=== PATIENT | male | born 1970 | race Caucasian/White ===

== ENCOUNTER 2017-11-12 11:16 | Inpatient (IN) | payer OTHER, SELFPAY ==
[2017-11-12 11:53] LABS: #Eosinphils 0.2 thou/uL (0.0-0.7); #Lymphocytes 2.1 thou/uL (1.20-3.40); #Monocytes 0.6 thou/uL (0.11-0.59); #Neutrophils 4.4 thou/uL (1.40-6.50); %Basophils 0.4 % (0.0-1.0); %Eosinophils 2.1 % (0.0-10.0); %Lymphocytes 28.3 % (21.0-51.0); %Monocytes 8.1 % (0.0-10.0); %Neutrophils 61.2 % (42.0-75.0); Mean Corpuscular Hemoglobin 27.9 pg (27.0-31.0); Mean Corpuscular Volume 87.2 fl (80.0-94.0); Mean Platelet Volume 6.4 fL (7.4-10.4); Platelet Count 262 thou/uL (130-400); RBC Distribution Width 12.6 % (11.5-14.5); Red Blood Cell (RBC) Count 5.37 mill/uL (4.70-6.10); White Blood Cell (WBC) Count 7.2 thou/uL (4.8-10.8)
[2017-11-12 12:26] LABS: ALT (SGPT) 30 U/L (8-55); AST (SGOT) 20 U/L (5-34); Albumin 3.9 g/dL (3.5-5.0); Alkaline Phosphatase 120 U/L (40-150); Anion Gap 10 mmol/L (10-20); BUN (Urea Nitrogen) 19 mg/dL (8.9-20.6); Bilirubin, Total 0.4 mg/dL (0.2-1.2); Calc. Creatinine Clearance 0 mL/min (70-130); Calcium 9.9 mg/dL (7.8-10.44); Carbon Dioxide 25 mmol/L (22-29); Chloride 95 mmol/L (98-107); Estimated GFR-MDRD 38; Globulin 3.9 g/dL (2.4-3.5); Potassium 4.5 mmol/L (3.5-5.1); Protein, Total 7.8 g/dL (6.0-8.3); Sodium 125 mmol/L (136-145)
[2017-11-12 12:34] LABS: Glucose 658 mg/dL (70-105)
[2017-11-12 12:40] LABS: Phosphorus 2.4 mg/dL (2.3-4.7)
[2017-11-12 12:49] LABS: Troponin I 0.012 ng/mL (< 0.028)
--- NOTE | 2017-11-12 12:50 | RAD ---
RIGHT FOOT THREE VIEWS: HISTORY: A 47-year-old male with a history of injury to the right foot. History of diabetes mellitus. FINDINGS: There is some soft tissue swelling laterally at the fifth toe, with what appears to be a focal soft t issue ulcer. There is some minimal osteopenia of the distal fifth metatarsal. The possibility of so me coexistent early osteomyelitis cannot be excluded. IMPRESSION: Soft tissue swelling laterally with an ulcer at the level of the fifth toe, distal metatarsal, with s ome heterogeneous, bony demineralization of the fifth metatarsal head. Consider follow-up MRI for fu rther assessment to rule out the possibility of osteomyelitis. POS: SANDRA
[2017-11-12 12:54] LABS: CKMB 10.3 ng/mL (0-6.6)
[2017-11-12] MEDS ORDERED: Piperacillin/Tazobactam 4.5 GM in Sodium Chloride 0.9% 100 ML IVPB SCH (14:00)
[2017-11-12 14:41] LABS: Base Excess-Venous -1.1 mmol/L (-30.0-30.0); Bicarbonate (HCO3v) 24.1 mmol/L (1.0-85.0); CO2 Tension (PvCO2) 43.3 mmHg (41.0-51.0); pH (Venous) 7.362 (7.35-7.45); vO2 Saturation-calc 64.8 % (0.0-100.0)
[2017-11-12 14:42] LABS: Calcium, Ionized 1.11 mmol/L (1.12-1.32); Potassium 4.5 mmol/L (3.4-4.7); T. Carbon Dioxide 25.9 mmol/L (1.0-85.0)
[2017-11-12] MEDS ORDERED: hydrALAZINE 20 MG/ML VIAL ONE ×2 (15:34→16:21)
[2017-11-12] MEDS ORDERED: Labetalol HCl 100 MG/20 ML VIAL ONE (16:58)
[2017-11-12 17:56] VITALS: BMI 34.9
[2017-11-12] MEDS ORDERED: HYDROcodone/Acetaminophen 5/325 mg Tablet PO PRN (18:05)
[2017-11-12] MEDS ORDERED: Ondansetron HCl/PF 4 MG/2 ML Vial IVP PRN (18:05)
[2017-11-12] MEDS ORDERED: Bisacodyl 5 MG TAB PO PRN (18:05)
[2017-11-12] MEDS ORDERED: Dextrose 50% Abboject 50 ML SYRINGE SLOW IVP PRN (18:05)
[2017-11-12] MEDS ORDERED: Dextrose 5% in Water 1,000 ML IV PRN (18:05)
[2017-11-12] MEDS ORDERED: Acetaminophen 325 MG TAB PO PRN (18:05)
--- NOTE | 2017-11-12 18:34 | HP ---
DATE OF ADMISSION: 11/12/2017 CHIEF COMPLAINT: Right foot ulcer. HISTORY OF PRESENT ILLNESS: This is a 47-year-old young white male with a known history of type 2 di abetes mellitus poorly controlled as he is stop taking medications for the past 3 years. The patient has been diagnosed with diabetes 6 years ago and was started on metformin and then as he lost his bubba b, he stopped taking his medications. Three months ago, his mother noted spontaneously there was a s mall blister on his on his right foot, and she started monitoring it closely and one day it did burst after 2 weeks with a pus all over, so she tried to clean it with a gauze and applied Triple Antibiot ic ointment and she has been closely monitoring and now it is the size of 3 cm with 0.5 cm of depth w ith the necrotic tissue and was emanating a very foul smelling discharge. The patient was brought to the ER for further evaluation. The patient was noted to have blood sugars of 600s and low sodium le vels and low potassium levels. He was initially given insulin in the emergency room and his blood multani gars did come down to 300, and the x-ray of his right foot was done, which showed no evidence of poss ible osteomyelitis. The patient denied having any chest pain, no nausea, no vomiting, no diarrhea, n o constipation. There was no pain on the foot and he did not complain of any pain. PAST MEDICAL HISTORY: Type 2 diabetes mellitus. PAST SURGICAL HISTORY: None. SOCIAL HISTORY: The patient is a not a known smoker. No history of alcohol, no history of illicit d rug use. FAMILY HISTORY: The patient has significant family history of coronary artery disease. His father d ied at the age of 46 with massive heart attack. ALLERGIES: No known drug allergies. HOME MEDICATIONS: None. REVIEW OF SYSTEMS: All 12 systems are reviewed with the patient thoroughly and found to be negative at this time except the ones described in the HPI The following complete review of systems was negative, unless otherwise mentioned in the HPI or below: Constitutional: Weight loss or gain, sense of well-being, ability to conduct usual activities, exerc ise tolerance. Skin/Breast: Rash, itching, changes in hair growth or loss, nail changes, breast lumps, tenderness, swelling, nipple discharge. Eyes: Vision, double vision, tearing, blind spots, pain. ENT/Mouth: Headaches (location, time of onset, duration, precipitating factors), vertigo, lightheade dness, injury. Vision, double vision, tearing, blind spots, pain, nose bleeding, colds, obstruction, discharge, dental difficulties, gingival bleeding, dentures, neck stiffness, pain, tenderness, masses in thyroid or other areas Cardiovascular: Precordial pain, substernal distress, palpitations, syncope, dyspnea on exertion, or thopnea, nocturnal paroxysmal dyspnea, edema, cyanosis, hypertension, heart murmurs, varicosities, ph lebitis, claudication. Respiratory: Pain, shortness of breath, wheezing, stridor, cough, hemoptysis, fever or night sweats Gastrointestinal: Poor appetite, dysphagia, indigestion, abdominal pain, heartburn, eructation, naus ea, vomiting, hematemesis, jaundice, constipation, or diarrhea, abnormal stools (bogdan-colored, tarry, bloody, greasy, foul smelling), flatulence, hemorrhoids, recent changes in bowel habits. Genitourinary: Urgency, frequency, dysuria, nocturia, hematuria, polyuria, oliguria, unusual (or kathleen nge in) color of urine, stones, hesitancy, change in size of stream, dribbling, acute retention or in continence, libido, potency. Musculoskeletal: Pain, swelling, redness or heat of muscles or joints, limitation, of motion, muscular weakness, atrophy, cramps. Neurologic/Psychiatric: Convulsions, paralyses, tremor, incoordination, parasthesias, difficulties w ith memory of speech, sensory or motor disturbances, or muscular coordination (ataxia, tremor), emoti onal problems, anxiety, depression, previous psychiatric care, unusual perceptions, hallucinations. Allergy/Immunologic: Skin rash, anemia, bleeding tendency, polydipsia, polyuria, intolerance to heat or cold. PHYSICAL EXAMINATION: VITAL SIGNS: Blood pressures are 130/80. Heart rate is 88, respiratory rate is 18. Saturation 98% . GENERAL: The patient is moderately built and moderately nourished. He does not appear to be in acut e distress at this time, is alert, oriented x3. HEENT: Atraumatic, normocephalic. PERRLA. Extraocular muscles are intact. Oral mucosa pink and mo ist. CARDIOVASCULAR: S1, S2 normal. No murmurs, rubs or gallops. LUNGS: Bilateral air entry was equal. No wheezing, no crackles. ABDOMEN: Soft, nontender, no guarding, no rebound tenderness. Bowel sounds normal. MUSCULOSKELETAL: No calf tenderness. No pedal edema. EXTREMITIES: No joint tenderness, no joint swelling. Patient's right foot showing an evidence of a 2 x 3 cm ulcer with 1 cm deep with necrotic tissue and has a foul smelling discharge. SKIN: As described above. NECK: No thyromegaly. No lymphadenopathy was noted. PSYCHIATRIC: No signs of suicidal ideation. No signs of perlita was noted. LABORATORY DATA: WBC 7.2, hemoglobin 15.0, hematocrit 46.8, and platelets are 262. Sodium is 133, potassium is 4.5, chloride is 97, blood sugar is 311. Creatinine is 1.92. BUN is 19. ASSESSMENT: 1. Acute right foot infection, possible osteomyelitis. 2. Acute hyperglycemia with type 2 diabetes mellitus. 3. Acute kidney injury. 4. Acute hyponatremia. PLAN: 1. Plan is to start the patient on IV antibiotics at this time with vancomycin and Zosyn and blood c ultures have been collected in the ER. We will consult General Surgery and Wound Care at this time t o evaluate the wound if it needs any further surgical debridement. We will get a MRI of the right fo ot to look for any evidence of osteomyelitis. 2. Patient has poorly controlled type 2 diabetes mellitus as he is not on any medications. His bloo d sugars are did respond to insulin. We will continue to monitor with sliding scale insulin. We carlos l start the patient on 30 units of Levemir at this time and to plan to keep the blood sugars between 140-180. 3. Patient has evidence of hyponatremia, likely related to hyponatremia secondary to hyperglycemia. We will closely monitor and continue the patient on IV normal saline at 100 mL an hour. 4. DVT prophylaxis is Lovenox 40 mg subcu daily. I spent 70 minutes of this patient
[2017-11-12] MEDS: Sodium Chloride 0.9% 1,000 ML IV SCH (18:44)
[2017-11-12] MEDS ORDERED: Insulin Detemir 100 UNITS/ML 30 UNITS in Pre-Filled Syringe 1 EACH SC SCH (21:00)
[2017-11-12] MEDS: Famotidine/PF 20 mg/2ml Vial SLOW IVP SCH (21:51)
[2017-11-12] MEDS: Docusate 100 MG CAP PO SCH (21:59)
[2017-11-12] MEDS: HumaLOG 300 UNITS/3 ML VIAL SC PRN (22:10)
[2017-11-12] MEDS: Piperacillin/Tazobactam 4.5 GM in Sodium Chloride 0.9% 100 ML IVPB SCH (22:13)
[2017-11-13] MEDS ORDERED: Vancomycin HCl 1 GM in Premix Bag 1 BAG IVPB SCH (03:00)
[2017-11-13] MEDS: Sodium Chloride 0.9% 1,000 ML IV SCH (03:40)
[2017-11-13 05:26] LABS: #Eosinphils 0.2 thou/uL (0.0-0.7); #Lymphocytes 1.4 thou/uL (1.20-3.40); #Monocytes 0.5 thou/uL (0.11-0.59); #Neutrophils 5.9 thou/uL (1.40-6.50); %Basophils 0.3 % (0.0-1.0); %Eosinophils 2.8 % (0.0-10.0); %Lymphocytes 17.6 % (21.0-51.0); %Monocytes 6.5 % (0.0-10.0); %Neutrophils 72.9 % (42.0-75.0); Hemoglobin 13.6 g/dL (14.0-18.0); Mean Corpuscular HGB CONC 32.4 g/dL (32.0-36.0); Mean Corpuscular Volume 86.3 fl (80.0-94.0); Mean Platelet Volume 6.1 fL (7.4-10.4); Platelet Count 237 thou/uL (130-400); RBC Distribution Width 12.4 % (11.5-14.5); Red Blood Cell (RBC) Count 4.84 mill/uL (4.70-6.10); White Blood Cell (WBC) Count 8.1 thou/uL (4.8-10.8)
[2017-11-13 05:32] LABS: Anion Gap 10 mmol/L (10-20); BUN (Urea Nitrogen) 16 mg/dL (8.9-20.6); Calc. Creatinine Clearance 125 mL/min (70-130); Calcium 8.5 mg/dL (7.8-10.44); Carbon Dioxide 25 mmol/L (22-29); Chloride 102 mmol/L (98-107); Estimated GFR-MDRD 58; Glucose 259 mg/dL (70-105); Potassium 3.9 mmol/L (3.5-5.1); Sodium 133 mmol/L (136-145)
[2017-11-13] MEDS: Piperacillin/Tazobactam 4.5 GM in Sodium Chloride 0.9% 100 ML IVPB SCH (05:33)
[2017-11-13] MEDS: HumaLOG 300 UNITS/3 ML VIAL SC PRN ×3 (05:43→22:00)
--- NOTE | 2017-11-13 08:09 | HP ---
HISTORY OF PRESENT ILLNESS: Chidi Meza is a 47-year-old male with a neuropathic ulcer, right fo ot beneath the metatarsophalangeal joint of the small toe. He has been a diabetic in the past, but s judi he quit taking his medications. He has gained weight recently since he has lost his job. He p resents to the emergency room and x-rays of the right foot demonstrating soft tissue swelling. MRI s can has been ordered, but I will cancel it as evaluation of ulceration reveals it extends into the me tatarsophalangeal joint. At this point, I would recommend amputation of the right fifth toe and meta tarsal, wound left open by secondary intention and wound VAC application. We will perform that today , he will be discharged home tomorrow or Friday with oral antibiotics whenever the [facility] wound VAC is available. The patient lives [place], [place]. He is and he can come to outpatient [facility] 2-3 times a week [facility] for VAC changes. I will follow him up as an outpatient and he can be discharged home on oral antibiotics in the next 24-48 hours. ALLERGIES: None. TOBACCO: None. ALCOHOL: None. MEDICATIONS: None prior to this hospitalization. REVIEW OF SYSTEMS: Ten point noncontributory. SOCIAL HISTORY: The patient is . He lives in [place], [place]. 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 PHYSICAL EXAMINATION: VITAL SIGNS: Height 6 foot 3, weight 275 pounds, 98 degrees, 87, 134/76. LUNGS: Clear to auscultation. CARDIAC: Regular rate and rhythm without murmur or gallop. ABDOMEN: Soft, obese, nontender. EXTREMITIES: Palpable femoral, popliteal, dorsalis pedis, posterior tibial pulses. The patient has hair on his toes and feet. Right foot reveals a neuropathic diabetic ulcer approximately 2 cm in edgard meter beneath the metatarsophalangeal joint of the right 5th toe. This extends into the metatarsopha langeal joint with exposed connective tissue and bone. LABORATORY: White count 8, hemoglobin 13, sodium 133, potassium 3.9, creatinine 1.33 down from 1.92 on admission, glucose 300 to 253. ASSESSMENT AND PLAN: 1. Diabetic neuropathic ulcer, right foot, with extension to the bone and metatarsophalangeal joint under the right fifth toe. Plan as outlined above. He understands the wound will be left open to he al by secondary intention. We will arrange for a charitable wound VAC. Patient understands risks an d benefits and consents. 2. Chronic kidney disease. 3. Uncontrolled diabetes, noncompliance. I have reiterated to him necessity of compliance in weight reduction to control this type 2 diabetes mellitus and prevent complications of diabetes. This was discussed with him. We will ask dietary to see him regarding diabetic diet and weight reduction effo rts.
[2017-11-13] MEDS: Enoxaparin Sodium 40 MG/0.4 ML SYRINGE SC SCH (09:00)
[2017-11-13] MEDS ORDERED: FLU VACC QS2017-18 36 mo. & older 0.5 ML SYRINGE IM ONE (09:00)
[2017-11-13] MEDS: Famotidine/PF 20 mg/2ml Vial SLOW IVP SCH (09:01)
[2017-11-13] MEDS: Docusate 100 MG CAP PO SCH ×2 (09:01→21:56)
[2017-11-13] MEDS ORDERED: Bupivacaine/Epinephrine 0.25% 30 ML VIAL ONE (09:50)
[2017-11-13] MEDS ORDERED: Promethazine HCl 25 MG/ML VIAL IM PRN (11:07)
[2017-11-13] MEDS ORDERED: Ondansetron HCl/PF 4 MG/2 ML Vial IVP PRN (11:07)
[2017-11-13] MEDS ORDERED: Promethazine HCl 25 MG/ML VIAL SLOW IVP PRN (11:07)
[2017-11-13] MEDS ORDERED: Fentanyl 100 MCG/2 ML VIAL ONE (11:35)
[2017-11-13 11:47] LABS: Hemoglobin A1c 13.1 % (4.0-6.0)
[2017-11-13] MEDS ORDERED: Insulin Detemir 100 UNITS/ML 10 UNITS in Pre-Filled Syringe SC SCH (13:00)
[2017-11-13] MEDS ORDERED: traMADol HCl 50 MG TAB PO PRN ×2 (13:50)
[2017-11-13] MEDS ORDERED: Acetaminophen 500 MG TAB PO PRN (13:50)
--- NOTE | 2017-11-13 14:14 | PRG ---
DATE OF SERVICE: 11/13/2017 Billy Meza is doing well postoperatively. He has not had any significant pain. He did not have any local anesthetic used during the surgery. His neuropathy will provide him a little pain. He louise uld be able to take Ultram [id number] as needed for pain. He does have chronic kidney disease, probably should avoid NSAIDs. He was instructed to lose weight and to take better control of his di abetes. From surgical standpoint, the patient will be discharged home at any time. His wound VAC molina s been approved. Outpatient wound care has been arranged. He will be seeing his [facility] Outpatient [facility] Friday and . They will call me from down there to see him in the next week and a half to 2 weeks. Otherwise, I will see him in the office in 2-3 weeks. I discontinued his IV ant ibiotics and changed him to oral Bactrim and Augmentin, which he should be on for 7-10 days.
--- NOTE | 2017-11-13 14:29 | OP ---
DATE OF PROCEDURE: 11/13/2017 PREOPERATIVE DIAGNOSES: Diabetic neuropathic ulcer, right foot, 2 cm communicating metatarsophalange al joint of the right fifth toe, noncompliant, diabetic. POSTOPERATIVE DIAGNOSES: Diabetic neuropathic ulcer, right foot, 2 cm communicating metatarsophalang eal joint of the right fifth toe, noncompliant, diabetic. PROCEDURES PERFORMED: Amputation of the right fifth toe and metatarsal. Wound left open to heal by secondary intention, wound VAC applied in the operating room. Cultures obtained intraoperatively. N o evidence of PAD. Good blood supply ANESTHESIA: General. PROCEDURE IN DETAIL: Patient was taken to the operating room where under general anesthesia, the rig ht lower extremity was prepared with ChloraPrep, draped in routine fashion. Incision was made for am putation of the right small toe and metatarsal, preserving as much skin as possible like size in the neuropathic ulcer. Metatarsal transected with a bone cutter and connective tissue debrided sharply. Wound irrigated. Cultures have been obtained from the neuropathic over the prior to amputation. Wo und care team arrived and placed a wound VAC. The patient tolerated the procedure well.
--- NOTE | 2017-11-13 15:13 | PDOC.PN ---
- Subjective Encounter Start Date: 11/13/17 Encounter Start Time: 14:30 Patient is seenj today, post Op today, He has wound vac arnaged, to go home, he has High BG poorly controlled. - Objective Resuscitation Status: Resuscitation Status FULL:Full Resuscitation MAR Reviewed: Yes Vital Signs & Weight: Vital Signs (12 hours) Temp Pulse Resp BP Pulse Ox 11/13/17 12:30 97.8 F 70 20 129/65 95 11/13/17 12:00 97.8 F 70 20 146/77 H 95 11/13/17 08:39 97.8 F 74 16 129/65 95 11/13/17 07:43 97.8 F 70 20 11/13/17 03:35 98.0 F 87 18 134/76 98 Weight Admit Weight 279 lb 15.793 oz Weight 279 lb 15.793 oz I&O: 11/12/17 11/13/17 11/14/17 06:59 06:59 06:59 Intake Total 1793 25 Balance 1793 25 Result Diagrams: 11/13/17 05:06 11/13/17 05:06 Additional Labs: Accuchecks 11/13/17 11/13/17 11/12/17 12:59 05:28 21:51 POC Glucose 237 H 253 H 301 H Phys Exam - Physical Examination HEENT: PERRLA, moist MMs Neck: no nodes, no JVD Respiratory: no wheezing, no rales Cardiovascular: RRR, no significant murmur Gastrointestinal: soft, non-tender Musculoskeletal: edema present (Right Foot with Wound vac, no bleeding) Neurological: non-focal, normal sensation Dx/Plan (1) Acute hyperglycemia Code(s): R73.9 - HYPERGLYCEMIA, UNSPECIFIED Status: Acute (2) Foot osteomyelitis, right Code(s): M86.9 - OSTEOMYELITIS, UNSPECIFIED Status: Acute (3) Hypertension Code(s): I10 - ESSENTIAL (PRIMARY) HYPERTENSION Status: Acute - Plan cont current plan of care, continue antibiotics, PT/OT, social worker clinical, incentive spirometry, DVT proph w/lovenox Plan: Patient has poorly controlled DM type, will discuss with Case management for finanacial aid to cover for nhis insulin he wound need 70/30 25 untis BID and metformin 1000SR. Pt high risk for readdmison for poor health poorly controlled DM. Patient s/pp Toe amputation right foot, general surgery put him on wound vac will follow with him in 2-3 weeks. and wound clinic for wound care. Hypertension well controlled. Continue to monitor. Dispo: plan dischagre tomorrow with Insulin and metformin and home wound vac. - Discharge Day Encounter end time: 15:30 Review of Systems - Review of Systems Constitutional: negative: fever, chills, sweats, weakness, malaise, other Eyes: negative: Pain, Vision Change, Conjunctivae Inflammation, Eyelid Inflammation, Redness, Other ENT: negative: Ear Pain, Ear Discharge, Nose Pain, Nose Discharge, Nose Congestion, Mouth Pain, Mouth Swelling, Throat Pain, Throat Swelling, Other Respiratory: negative: Cough, Dry, Shortness of Breath, Hemoptysis, SOB with Excertion, Pleuritic Pain, Sputum, Wheezing Cardiovascular: negative: chest pain, palpitations, orthopnea, paroxysmal nocturnal dyspnea, edema, light headedness, other Gastrointestinal: negative: Nausea, Vomiting, Abdominal Pain, Diarrhea, Constipation, Melena, Hematochezia, Other Genitourinary: negative: Dysuria, Frequency, Incontinence, Hematuria, Retention , Other Musculoskeletal: Leg Pain Skin: negative: Rash, Lesions, Connre, Bruising, Other Neurological: negative: Weakness, Numbness, Incoordination, Change in Speech, Confusion, Seizures, Other - Medications/Allergies Allergies/Adverse Reactions: Allergies Allergy/AdvReac Type Severity Reaction Status Date / Time No Known Allergies Allergy Verified 11/12/17 18:11 Medications: Current Medications Acetaminophen (Tylenol) 650 mg PO Q4H PRN PRN Reason: Headache/Fever or Pain Last Admin: 11/13/17 05:43 Dose: 650 mg Acetaminophen (Tylenol) 1,000 mg PO Q6H PRN PRN Reason: Moderate to Severe Pain (6-10) Amoxicillin/Clavulanate Potassium (Augmentin) 500 mg PO Q12HR [facility] Bisacodyl (Dulcolax) 10 mg PO DAILYPRN PRN PRN Reason: Constipation Dextrose/Water (Dextrose 50%) 25 gm SLOW IVP PRN PRN PRN Reason: Hypoglycemia Docusate Sodium (Colace) 100 mg PO BID [facility] Last Admin: 11/13/17 09:01 Dose: Not Given Enoxaparin Sodium (Lovenox) 40 mg SC 0900 [facility] Last Admin: 11/13/17 09:00 Dose: Not Given Glucagon (Glucagon) 1 mg IM PRN PRN PRN Reason: Hypoglycemia Dextrose/Water (D5w) 1,000 mls @ 0 mls/hr IV .Q0M PRN; As Directed PRN Reason: Hypoglycemia Insulin Detemir 40 units/ (Miscellaneous Medication) 0.4 mls @ 0 mls/hr SC QAM [facility] Insulin Human Lispro (Humalog) 0 units SC .MODERATE SLIDING SC PRN PRN Reason: Moderate Correctional Scale Last Admin: 11/13/17 05:43 Dose: 6 unit Ondansetron HCl (Zofran) 4 mg IVP Q6H PRN PRN Reason: Nausea/Vomiting Sodium Chloride (Flush - Normal Saline) 10 ml IVF Q12HR [facility] Last Admin: 11/13/17 09:01 Dose: Not Given Sodium Chloride (Flush - Normal Saline) 10 ml IVF PRN PRN PRN Reason: Saline Flush Tramadol HCl (Ultram) 50 mg PO Q6H PRN PRN Reason: Pain 1ST LINE Tramadol HCl (Ultram) 100 mg PO Q6H PRN PRN Reason: Pain 2ND LINE Trimethoprim/Sulfamethoxazole (Bactrim Ds) 1 tab PO BID [facility]
[2017-11-13] MEDS ORDERED: Sulfameth/Trimethoprim DS 800-160mg TAB PO SCH (15:30)
[2017-11-13] MEDS ORDERED: Amoxicillin/Potassium Clav 500 MG TAB PO SCH (15:30)
[2017-11-13] MEDS ORDERED: PROPOFOL 200 MG/20 ML VIAL ONE (17:04)
[2017-11-13] MEDS ORDERED: Ondansetron HCl/PF 4 MG/2 ML Vial ONE (17:04)
[2017-11-13] MEDS ORDERED: Dexamethasone 20 MG/5 ML VIAL ONE (17:04)
[2017-11-13] MEDS: Sulfameth/Trimethoprim DS 800-160mg TAB PO SCH (21:55)
[2017-11-13] MEDS: Amoxicillin/Potassium Clav 500 MG TAB PO SCH (21:55)
[2017-11-14] MEDS: HumaLOG 300 UNITS/3 ML VIAL SC PRN (06:01)
[2017-11-14 06:09] LABS: #Eosinphils 0.1 thou/uL (0.0-0.7); #Monocytes 0.6 thou/uL (0.11-0.59); #Neutrophils 10.5 thou/uL (1.40-6.50); %Basophils 0.3 % (0.0-1.0); %Eosinophils 0.9 % (0.0-10.0); %Lymphocytes 8.1 % (21.0-51.0); %Neutrophils 85.8 % (42.0-75.0); Mean Corpuscular HGB CONC 32.8 g/dL (32.0-36.0); Mean Corpuscular Hemoglobin 28.4 pg (27.0-31.0); Mean Corpuscular Volume 86.7 fl (80.0-94.0); Mean Platelet Volume 6.7 fL (7.4-10.4); Platelet Count 285 thou/uL (130-400); RBC Distribution Width 12.6 % (11.5-14.5); Red Blood Cell (RBC) Count 4.93 mill/uL (4.70-6.10); White Blood Cell (WBC) Count 12.2 thou/uL (4.8-10.8)
[2017-11-14 06:20] LABS: Anion Gap 15 mmol/L (10-20); BUN (Urea Nitrogen) 23 mg/dL (8.9-20.6); Calc. Creatinine Clearance 111 mL/min (70-130); Calcium 9.1 mg/dL (7.8-10.44); Carbon Dioxide 21 mmol/L (22-29); Chloride 101 mmol/L (98-107); Estimated GFR-MDRD 51; Glucose 303 mg/dL (70-105); Potassium 4.5 mmol/L (3.5-5.1); Sodium 132 mmol/L (136-145)
[2017-11-14] MEDS: Amoxicillin/Potassium Clav 500 MG TAB PO SCH (08:40)
[2017-11-14] MEDS: Docusate 100 MG CAP PO SCH (08:40)
[2017-11-14] MEDS: Sulfameth/Trimethoprim DS 800-160mg TAB PO SCH (08:40)
[2017-11-14] MEDS: Enoxaparin Sodium 40 MG/0.4 ML SYRINGE SC SCH (08:40)
[2017-11-14 08:53] VITALS: TEMP 97.9
[2017-11-14] MEDS ORDERED: Insulin Detemir 100 UNITS/ML 40 UNITS in Pre-Filled Syringe SC SCH (09:00)
[2017-11-14 09:17] VITALS: BP 146/84
--- NOTE | 2017-11-14 13:30 | DIS ---
DATE OF ADMISSION: 11/12/2017 DATE OF DISCHARGE: 11/14/2017 ADMITTING DIAGNOSIS: Acute right foot osteomyelitis. DISCHARGE DIAGNOSES: Acute right foot osteomyelitis status post amputation of the fifth toe. SECONDARY DIAGNOSES: 1. Acute hyperglycemia secondary to poorly controlled type 2 diabetes mellitus. 2. Acute kidney injury. 3. Severe dehydration. 4. Hypertension. CONSULTANTS: General Surgery, Dr. Fernando Howard. PROCEDURES DONE DURING THIS ADMISSION: Amputation of the right fifth toe and wound VAC placement wit h the [facility] home wound VAC. HISTORY OF PRESENT ILLNESS/HOSPITAL COURSE: In brief, this is a 47-year-old young white male with a known history of type 2 diabetes mellitus diagnosed more than 6 years ago, but stopped taking medicat ions for the past 3 years and he ended up having a right foot ulcer which progressively grew to the s ize of 3 x 2 cm size within 3 months. The patient has been applying just Triple Antibiotic ointment and to the point that the patient was having foul smelling discharge and the depth of almost 2 cm juany p ulcer. General Surgery has seen this patient and recommended a toe amputation as there is a pretty significant involvement of the bone. The patient was started on IV antibiotics with vancomycin and Zosyn and his wound culture results were back and was positive for Klebsiella and Staph aureus and me thicillin-sensitive. The patient was started on Bactrim and Augmentin. The patient had poorly contr olled blood sugars and was started on Levemir and later on transitioned to 70/30 subcu insulin. The patient is strongly recommended through case management to follow up with a primary care physician at a [facility]. All of the information was given to the patient. The patient is advis ed to continue the antibiotic for at least 10 days and follow up with General Surgery in 3-4 weeks an d also follow up with General Surgery Wound Clinic for wound care. The patient got a [facility] wound V AC through case management. The patient was also advised to follow the diabetic medications and comp liance with diet and exercise. The patient is discharged home in stable condition. PHYSICAL EXAMINATION: DISCHARGE VITAL SIGNS: Blood pressures are 146/84, heart rate is 71, respiration is 20, saturation 9 6%. GENERAL: The patient is moderately built and moderately nourished, does not appear in acute distress . CARDIOVASCULAR: S1, S2 normal. No murmurs, rubs or gallops. LUNGS: Bilateral air entry was equal. No wheezing, no crackles. ABDOMEN: Soft, nontender, no guarding, no rebound tenderness. Bowel sounds normal. MUSCULOSKELETAL: No calf tenderness. No pedal edema. No joint tenderness, no joint swelling. SKIN: No cyanosis, no erythema, no rash, no pallor. No evidence of any bleeding from the wound was noted on the day of discharge. HOME MEDICATIONS: The patient was sent home on Augmentin 500 mg p.o. q.12h. and Bactrim DS twice alexis ly for 10 days and also patient was given 70/30 insulin to be taken as 35 units in the morning and 25 units in the evening. Plan to keep the blood sugars less than 115 in the morning and random blood s ugars between 140-180. Advised to follow diabetic diet. DISCHARGE INSTRUCTIONS: 1. Advised to follow diabetic diet. 2. Advised to follow up with General Surgery in 2-3 weeks. 3. Advised to follow up within 1 week at the Wound Care for management of the wound VAC. 4. Follow recommendations from surgical point of view has been arranged by the General Surgery team. I spent 35 minutes with the patient on the day of discharge.
--- NOTE | 2017-12-11 18:36 | EKG ---
Test Reason : PREOP Blood Pressure : / mmHG Vent. Rate : 075 BPM Atrial Rate : 075 BPM P-R Int : 170 ms QRS Dur : 108 ms QT Int : 376 ms P-R-T Axes : 058 -16 088 degrees QTc Int : 419 ms Normal sinus rhythm Normal ECG No previous ECGs available Confirmed by DR. Jani VARGHESE ([id number]) on 12/11/2017 6:35:33 PM Referred By: ELEAZAR Confirmed By:DR. Jani VARGHESE
== END 2017-11-14 11:29 | disposition home or self-care (01) | DRG 617 ==
LOC: ERS 11:16 → 3SE 15:33 → 3SW 11-13 14:52 → 3SE 11-13 15:00
PROVIDERS: ADMIT Family Medicine; ATTEND Family Medicine
PROC: 0Y6X0Z0 Detachment at Right 5th Toe, Complete, Open Approach (ICD-10-PCS; principal; 2017-11-13)
DX: E11.621 Type 2 diabetes mellitus with foot ulcer (principal); M86.171 Other acute osteomyelitis, right ankle and foot; N17.9 Acute kidney failure, unspecified; E11.40 Type 2 diabetes mellitus with diabetic neuropathy, unspecified; E87.1 Hypo-osmolality and hyponatremia; E11.69 Type 2 diabetes mellitus with other specified complication; E11.65 Type 2 diabetes mellitus with hyperglycemia; L97.519 Non-pressure chronic ulcer of other part of right foot with unspecified severity; Z91.19 Patient's noncompliance with other medical treatment and regimen; E86.0 Dehydration; I10 Essential (primary) hypertension
CPT/HCPCS: 36415; 36416; 80048; 80053; 82010; 82330; 82553; 82803; 83036; 83605; 83735; 84100; 84484; 85025; 87040; 87070; 87076; 87077; 87186; 87205; 88305; 93005; 93010; 96361; 96365; 96367; 96375; 96376; A4216; G8978-GP-CK; G8979-GP-CK; G8980-GP-CK; G8987-GO-CJ; G8988-GO-CJ; G8989-GO-CJ; J0360; J1100; J1650; J1815; J2405; J2543; J2704; J3010; J3370; J7050; S0028

== ENCOUNTER 2017-11-17 14:13 | Outpatient (CLI) | payer SELFPAY ==
[~2017-11-17 14:13] MED LIST: Lidocaine 4% Topical Sol 50 ML BOT ONE; Sodium Chloride 0.9% 15 ML NEB ONE
== END 2017-11-17 14:14 | disposition home or self-care (01) ==
LOC: WCC 14:13
PROVIDERS: ATTEND Family Medicine
DX: T81.89XD Other complications of procedures, not elsewhere classified, subsequent encounter (principal); Z89.421 Acquired absence of other right toe(s)
CPT/HCPCS: 97606; A4218; J2001

== ENCOUNTER 2017-11-20 13:22 | Outpatient (CLI) | payer OTHER, SELFPAY ==
[2017-11-20] MEDS ORDERED: Lidocaine 2% Jelly 5 ML TUBE ONE (17:14)
[2017-11-20] MEDS ORDERED: Sodium Chloride 0.9% 15 ML NEB ONE (17:14)
== END 2017-11-20 13:23 | disposition home or self-care (01) ==
LOC: WCC 13:22
PROVIDERS: ATTEND Family Medicine
DX: T81.89XD Other complications of procedures, not elsewhere classified, subsequent encounter (principal); Z89.421 Acquired absence of other right toe(s)
CPT/HCPCS: 36416; 97606; A4218

== ENCOUNTER 2017-11-24 10:19 | Outpatient (CLI) | payer OTHER, SELFPAY ==
[2017-11-24] MEDS ORDERED: Sodium Chloride 0.9% 15 ML NEB ONE (17:24)
--- NOTE | 2017-11-25 11:18 | HP ---
DATE OF SERVICE: 11/24/2017 HISTORY OF PRESENT ILLNESS: Mr. Chidi Meza is a very pleasant 47-year-old gentleman who presents to the Wound Center for evaluation of a wound of the right foot subsequent to amputation of the right fifth toe and metatarsal. The patient underwent the preceding procedure on 11/13/[address] Fernando Howard. At surgery, the wound was left open to heal by secondary intention, and negative pressure therapy was initiated. Upon discharge from [facility], the patient was referred to the Wound Center for assistance with dressing changes of the wound VAC. Cultures obtained intraoperatively revealed the growth of Streptococcus agalactiae group B, Staphylococcus aureus, and Prevotella bivia. The patient was discharged to home on Augmentin and Bactrim DS. PAST MEDICAL HISTORY: 1. Diabetes mellitus. 2. Hypertension. PAST SURGICAL HISTORY: 1. Amputation of right fifth toe and metatarsal/wound VAC application 2017. 2. Right hand surgery. 3. ORIF of left ankle. 4. Surgery for pilonidal cyst abscess. 5. Right testicular surgery for infectious process. MEDICATIONS: 1. Novolin 70/30. 2. Augmentin. 3. Bactrim DS. ALLERGIES: No known diagnosed allergies. SOCIAL HISTORY: Negative for tobacco use. The patient admits to the "social" consumption of alcohol in the past. He states that he stopped drinking completely 15-20 years ago. FAMILY HISTORY: Family history is significant for diabetes mellitus. The patient states that his maternal grandmother was diagnosed with diabetes mellitus. Family history is also significant for coronary artery disease. PHYSICAL EXAMINATION: VITAL SIGNS: Temperature 97.5, pulse 82, respirations 19, blood pressure 144/ 86. Accu-Chek 184. GENERAL: A 47-year-old gentleman lying on table in examination room in no acute distress. HEENT: Normocephalic, atraumatic. NECK: No nuchal rigidity. CHEST: Clear to auscultation. CARDIAC: Regular rate and rhythm. ABDOMEN: Soft. EXTREMITIES: A wound of the right foot subsequent to amputation of the right fifth toe and metatarsal is present. The dimensions of the wound are approximately 3.2 x 4.5 cm. Granulation tissue is present within the wound margins. Nonviable tissue present within the wound margins was debrided with an excisional full-thickness debridement. No purulent drainage is associated with the wound. No erythema of the skin surrounding the wound is present. No maceration of the skin of the periwound is noted. A dorsalis pedis pulse is palpable on the right. No significant edema of the right foot is present on exam today. NEUROLOGIC: Grossly nonfocal. ASSESSMENT AND PLAN: 1. Right foot wound subsequent to amputation of the right fifth toe and metatarsal. Negative pressure therapy was initiated in the operating room and will be continued with dressing changes of the wound VAC here in the Wound Center. The patient will be seen by Dr. Howard in 1 week. I will see Chuckie Derrick again in 2 weeks. The patient has been reminded to continue Bactrim DS and Augmentin as prescribed at the time of discharge. 2. Diabetes mellitus. The patient's Accu-Chek in clinic today is 184. The patient has been told that for optimal wound healing, his blood glucoses should remain below 150. 3. Hypertension. MTDD
== END 2017-11-24 10:20 | disposition home or self-care (01) ==
LOC: WCC 10:19
PROVIDERS: ATTEND Family Medicine
DX: T87.89 Other complications of amputation stump (principal); E11.69 Type 2 diabetes mellitus with other specified complication; I10 Essential (primary) hypertension; Z89.421 Acquired absence of other right toe(s)
CPT/HCPCS: 11042; 99203; A4218; G0463

== ENCOUNTER 2017-11-28 12:42 | Outpatient (CLI) | payer OTHER, SELFPAY ==
[2017-11-28] MEDS ORDERED: Sodium Chloride 0.9% 15 ML NEB ONE (15:41)
== END 2017-11-28 12:43 | disposition home or self-care (01) ==
LOC: WCC 12:42
PROVIDERS: ATTEND Family Medicine
DX: T81.89XD Other complications of procedures, not elsewhere classified, subsequent encounter (principal); Z89.421 Acquired absence of other right toe(s)
CPT/HCPCS: 97605; A4218

== ENCOUNTER 2017-12-01 10:32 | Outpatient (CLI) | payer OTHER, SELFPAY ==
[2017-12-01] MEDS ORDERED: Sodium Chloride 0.9% 15 ML NEB ONE (16:56)
== END 2017-12-01 10:33 | disposition home or self-care (01) ==
LOC: WCC 10:32
PROVIDERS: ATTEND Family Medicine
DX: T81.89XD Other complications of procedures, not elsewhere classified, subsequent encounter (principal); Z89.422 Acquired absence of other left toe(s)
CPT/HCPCS: 97605; A4218

== ENCOUNTER 2017-12-04 11:17 | Outpatient (CLI) | payer OTHER ==
[2017-12-08] MEDS ORDERED: Sodium Chloride 0.9% 15 ML NEB ONE (16:52)
== END 2017-12-04 11:18 | disposition home or self-care (01) ==
LOC: WCC 11:17
PROVIDERS: ATTEND Family Medicine
DX: T81.89XD Other complications of procedures, not elsewhere classified, subsequent encounter (principal); Z89.421 Acquired absence of other right toe(s)
CPT/HCPCS: 97605

== ENCOUNTER 2017-12-08 11:19 | Outpatient (CLI) | payer OTHER ==
--- NOTE | 2017-12-08 18:29 | PRG ---
DATE OF SERVICE: 12/08/2017 HISTORY: Mr. Chidi Meza is a very pleasant 47-year-old gentleman who presents to the Wound [facility] for evaluation of a wound of the right foot subsequent to amputation of the right fifth toe and met atarsal. The patient underwent the preceding procedure on 11/13/[address] Fernando Howard. At [facility], the wound was left open to heal by secondary intention and negative pressure therapy was initiat ed. Upon discharge from [facility], the patient was referred to the Wound [facility] for assistance with dressing changes of the wound VAC. Cultures obtained intraoperatively reveal ed the growth of Streptococcus agalactiae group B, Staphylococcus aureus and Prevotella bivia. The p atient was discharged to home on Augmentin and Bactrim DS. PHYSICAL EXAMINATION: VITAL SIGNS: Temperature 97.6, pulse 75, respirations 19, blood pressure 163/87. Accu-Chek 167. EXTREMITIES: A wound of the right foot subsequent to amputation of the fifth toe and metatarsal is s till present. The dimensions of the wound are approximately 3.5 x 1.5 cm. The dimensions of the wou nd at the time of the patient's visit on 11/24/2017 were approximately 3.2 x 4.5 cm. Granulation tis samantha is present within the wound margins. Nonviable tissue present within the wound margins was debri ded with an excisional full-thickness debridement with the use of a curette. No purulent drainage is associated with the wound. No erythema of the skin surrounding the wound is present. No maceration of the skin of the periwound is noted. No significant edema of the right foot is present on exam to day. ASSESSMENT AND PLAN: 1. Right foot wound subsequent to amputation of the right fifth toe and metatarsal. Negative pressu re therapy was initiated in the operating room and will be continued with dressing changes of the wou nd VAC here in the Wound Center. The patient will be seen by Dr. Howard later this week or in 1 week . I will see Mr. Meza again in two weeks. 2. Diabetes mellitus. The patient's Accu-Chek in clinic today is 167. The patient has been reminde d that for optimal wound healing, his blood glucoses should remain below 150. 3. Hypertension.
== END 2017-12-08 11:20 | disposition home or self-care (01) ==
LOC: WCC 11:19
PROVIDERS: ATTEND Family Medicine
DX: T81.89XD Other complications of procedures, not elsewhere classified, subsequent encounter (principal); E11.9 Type 2 diabetes mellitus without complications; I10 Essential (primary) hypertension; Z89.421 Acquired absence of other right toe(s)
CPT/HCPCS: 11042

== ENCOUNTER 2017-12-11 14:50 | Outpatient (CLI) | payer OTHER | END 2017-12-11 14:51 | disposition home or self-care (01) | LOC: WCC 14:50 | PROVIDERS: ATTEND Family Medicine | DX: T87.89 Other complications of amputation stump (principal); Z89.421 Acquired absence of other right toe(s) | CPT/HCPCS: 97605 ==

== ENCOUNTER 2017-12-15 14:56 | Outpatient (CLI) | payer SELFPAY | END 2017-12-15 14:57 | disposition home or self-care (01) | LOC: WCC 14:56 | PROVIDERS: ATTEND Family Medicine | DX: T81.89XD Other complications of procedures, not elsewhere classified, subsequent encounter (principal); Z89.421 Acquired absence of other right toe(s) | CPT/HCPCS: 97605 ==

== ENCOUNTER 2017-12-22 08:42 | Outpatient (CLI) | payer OTHER ==
--- NOTE | 2017-12-22 10:31 | PRG ---
DATE OF SERVICE: 12/22/2017 HISTORY: Mr. Chidi Meza is a very pleasant 47-year-old gentleman, who presents to the Wound Cent er for evaluation of wound of the right foot, subsequent to amputation of the right fifth toe and met atarsal. Since the patient's visit on 12/08/2017, Mr. Meza has been seen by Dr. Howard and negati ve pressure therapy discontinued. The patient states he has been performing dressing changes of Silv ercel on a daily basis after cleansing and irrigation with the assistance of his . PHYSICAL EXAMINATION: VITAL SIGNS: Temperature 97.6, pulse 78, respirations 17, blood pressure 144/93. Accu-Chek 121. EXTREMITIES: A wound of the right foot subsequent to amputation of the fifth toe and metatarsal is s till present. The dimensions of the wound are approximately 2.5 x 0.6 cm. The dimensions of the wou nd at the time of the patient's visit on 12/08/2017 were approximately 3.5 x 1.5 cm. Granulation tis samantha is present within the wound margins. Nonviable tissue present within the wound margins, was debr ided with an excisional full-thickness debridement. Desiccated tissue and callus at the periphery of the wound were excised with the use of scissors. No purulent drainage is associated with the wound. No cellulitis of the right foot is appreciated. No maceration of the skin of the erasmo-wound is not ed. A dorsalis pedis pulse is palpable on the right. No significant edema of the right foot is pres ent on exam today. ASSESSMENT AND PLAN: 1. Right foot wound subsequent to amputation of the fifth toe and metatarsal. Dressing changes of S ilvercel, 4 x 4s Kerlix, and an Catarino bandage are to be performed on a daily basis after cleansing and irrigation with the assistance of the patient's . I will see Mr. Meza again in one week. The patient will be seen by Dr. Howard in 3 weeks. 2. Diabetes mellitus. The patient's Accu-Chek in clinic today is 121. The patient has been reminde d that for optimal wound healing. His blood glucoses should remain below 150. 3. Hypertension.
[2017-12-22] MEDS ORDERED: Sodium Chloride 0.9% 15 ML NEB ONE (11:11)
== END 2017-12-22 08:43 | disposition home or self-care (01) ==
LOC: WCC 08:42
PROVIDERS: ATTEND Family Medicine
DX: E11.621 Type 2 diabetes mellitus with foot ulcer (principal); L97.519 Non-pressure chronic ulcer of other part of right foot with unspecified severity; I10 Essential (primary) hypertension; Z89.421 Acquired absence of other right toe(s)
CPT/HCPCS: 11042; A4218

== ENCOUNTER 2017-12-29 12:42 | Outpatient (CLI) | payer OTHER ==
--- NOTE | 2017-12-29 14:19 | PRG ---
DATE OF SERVICE: 12/29/2017 HISTORY: Mr. Chidi Meza is a very pleasant 47-year-old gentleman who presents to the Wound Center for evaluation of a wound of the right foot subsequent to amputation of the right fifth toe and metatarsal. The patient has been receiving dressing changes of Silvercel since his last visit. The patient has no complaints today. He denies any fever or chills. PHYSICAL EXAMINATION: VITAL SIGNS: Temperature 97.7, pulse 72, respirations 19, blood pressure 162/ 79. Accu-Chek 284. EXTREMITIES: A wound of the right foot subsequent to amputation of the fifth toe and metatarsal is still present. Granulation tissue is present within the wound margins. Nonviable tissue present within the wound margins was debrided with an excisional full-thickness debridement with the use of a curette. Desiccated tissue at the periphery of the wound was excised with the use of scissors. No purulent drainage is associated with the wound. No cellulitis of the right foot is appreciated. No maceration of the skin of the periwound is noted. No significant edema of the right foot is present on exam today. ASSESSMENT AND PLAN: 1. Right foot wound subsequent to amputation of the fifth toe and metatarsal. Dressing changes of Silvercel, 4 x 4s, Kerlix, and an Catarino bandage are to be performed on a daily basis after cleansing and irrigation with the assistance of the patient's . I will see Mr. Meza again in 1 week. The patient will be seen by Dr. Howard in 2 weeks. 2. Diabetes mellitus. The patient's Accu-Chek in clinic today is 284. The patient has been reminded that for optimal wound healing, his blood glucoses should remain below 150. 3. Hypertension. MTDD
[2017-12-29] MEDS ORDERED: Sodium Chloride 0.9% 15 ML NEB ONE (14:24)
[2017-12-29] MEDS ORDERED: Lidocaine 2% Jelly 5 ML TUBE ONE (14:24)
== END 2017-12-29 12:43 | disposition home or self-care (01) ==
LOC: WCC 12:42
PROVIDERS: ATTEND Family Medicine
DX: E11.621 Type 2 diabetes mellitus with foot ulcer (principal); L97.519 Non-pressure chronic ulcer of other part of right foot with unspecified severity; I10 Essential (primary) hypertension; Z89.421 Acquired absence of other right toe(s)
CPT/HCPCS: 11042; 36416; A4218

== ENCOUNTER 2018-01-05 09:27 | Outpatient (CLI) | payer OTHER ==
[~2018-01-05 09:27] MED LIST changes: +Lidocaine 2% Jelly 5 ML TUBE ONE; -Lidocaine 4% Topical Sol 50 ML BOT ONE
--- NOTE | 2018-01-05 11:10 | PRG ---
DATE OF SERVICE: 01/05/2018 HISTORY: Mr. Chidi Meza is a very pleasant 47-year-old gentleman who presents to the [facility] for evaluation of a wound of the right foot subsequent to amputation of the right fifth toe and met atarsal. The patient has been receiving dressing changes of Silvercel since his last visit. Mr. Kwaku mcclain has no complaints today. He denies any fever or chills. PHYSICAL EXAMINATION: VITAL SIGNS: Temperature 97.6, pulse 75, respirations 18, blood pressure 193/96. Accu-Chek 328. EXTREMITIES: A wound of the right foot subsequent to amputation of the fifth toe and metatarsal is s till present. Granulation tissue is present within the wound margins. Nonviable tissue present with in the wound margins was debrided with an excisional full-thickness debridement with the use of a cur ette. Desiccated tissue undermining and callus associated with wound was excised with the use of sci ssors. Serosanguineous drainage with particulate matter is associated with the wound. No cellulitis of the right foot is appreciated. No maceration of the skin of the periwound is noted. A dorsalis pedis pulse is palpable on the right. No significant edema of the right foot is present on exam toda y. ASSESSMENT AND PLAN: 1. Right foot wound subsequent to amputation of the fifth toe and metatarsal. Dressing changes of S ilvercel, 4 x 4s, and Kerlix are to be performed on a daily basis after cleansing and irrigation. Th e patient will be seen by Dr. Howard in 1 week. I will see Mr. Meza again as needed after the pat ient is seen by General Surgery. 2. Diabetes mellitus. The patient's Accu-Chek in clinic today is 328. The patient has been reminde d that for optimal wound healing, his blood glucoses should remain below 150. 3. Hypertension.
== END 2018-01-05 09:28 | disposition home or self-care (01) ==
LOC: WCC 09:27
PROVIDERS: ATTEND Family Medicine
DX: T81.89XD Other complications of procedures, not elsewhere classified, subsequent encounter (principal); E11.9 Type 2 diabetes mellitus without complications; I10 Essential (primary) hypertension; Z89.421 Acquired absence of other right toe(s)
CPT/HCPCS: 11042; 36416; A4218

== ENCOUNTER 2018-03-20 11:14 | Observation (INO) | payer OTHER, SELFPAY ==
[2018-03-20 12:37] LABS: #Basophils 0.1 thou/uL (0.0-0.2); #Eosinphils 0.2 thou/uL (0.0-0.7); #Lymphocytes 1.7 thou/uL (1.20-3.40); #Monocytes 0.6 thou/uL (0.11-0.59); #Neutrophils 7.1 thou/uL (1.40-6.50); %Basophils 0.5 % (0.0-1.0); %Eosinophils 2.1 % (0.0-10.0); %Lymphocytes 17.7 % (21.0-51.0); %Monocytes 5.8 % (0.0-10.0); Hemoglobin 15.5 g/dL (14.0-18.0); Mean Corpuscular HGB CONC 33.1 g/dL (32.0-36.0); Mean Corpuscular Hemoglobin 28.1 pg (27.0-31.0); Mean Corpuscular Volume 84.9 fl (80.0-94.0); Mean Platelet Volume 6.3 fL (7.4-10.4); Platelet Count 286 thou/uL (130-400); RBC Distribution Width 12.9 % (11.5-14.5); Red Blood Cell (RBC) Count 5.52 mill/uL (4.70-6.10); White Blood Cell (WBC) Count 9.6 thou/uL (4.8-10.8)
[2018-03-20 12:53] LABS: ALT (SGPT) 20 U/L (8-55); AST (SGOT) 17 U/L (5-34); Albumin 3.8 g/dL (3.5-5.0); Alkaline Phosphatase 95 U/L (40-150); Anion Gap 10 mmol/L (10-20); BUN (Urea Nitrogen) 17 mg/dL (8.9-20.6); Bilirubin, Total 0.7 mg/dL (0.2-1.2); Calc. Creatinine Clearance 0 mL/min (70-130); Calcium 9.4 mg/dL (7.8-10.44); Carbon Dioxide 26 mmol/L (22-29); Chloride 105 mmol/L (98-107); Estimated GFR-MDRD 61; Globulin 3.3 g/dL (2.4-3.5); Glucose 97 mg/dL (70-105); Potassium 4.4 mmol/L (3.5-5.1); Protein, Total 7.1 g/dL (6.0-8.3); Sodium 137 mmol/L (136-145)
[2018-03-20 12:58] LABS: Troponin I 0.012 ng/mL (< 0.028)
[2018-03-20 13:05] LABS: CKMB 11.2 ng/mL (0-6.6)
--- NOTE | 2018-03-20 13:26 | RAD ---
CHEST 1 VIEW: Date: 03/20/18 HISTORY: Hypertension. COMPARISON: None. FINDINGS: Lungs are clear. No pneumothorax or effusion. Cardiac silhouette and mediastinal contours within norm al limits. No acute osseous abnormality. IMPRESSION: No acute intrathoracic abnormality. POS: BRANDONH
[2018-03-20] MEDS ORDERED: Proparacaine 0.5% Opth 15 ML BOT ONE (14:32)
[2018-03-20 17:22] LABS: Syphilis Antibody Nonreactive (Nonreactive); Syphilis Antibody Index 0.04 S/CO (<1.00 Non-Reactive)
--- NOTE | 2018-03-20 18:48 | CT ---
CT BRAIN WITHOUT CONTRAST: 03/20/18 HISTORY: Vision problems. Patient having trouble seeing for the past three days. It started out as blurriness but has progressed to double vision and dizziness. Associated with headache. FINDINGS: No evidence of infarct, hemorrhage, midline shift or abnormal extra-axial fluid collections are seen. The ventricular size is normal and the basilar cisterns patent. The bony calvarium is intact. The vi sualized paranasal sinuses are well aerated. IMPRESSION: No CT evidence of acute intracranial process. POS: BRANDONH
[2018-03-20] MEDS ORDERED: Ondansetron HCl/PF 4 MG/2 ML Vial IVP PRN (18:49)
[2018-03-20] MEDS ORDERED: Ondansetron ODT 4 MG TAB PO PRN (18:49)
[2018-03-20] MEDS ORDERED: Calcium Carbonate 500 MG ChewTAB PO PRN (18:49)
[2018-03-20] MEDS ORDERED: Acetaminophen 325 MG TAB PO PRN (18:49)
[2018-03-20] MEDS ORDERED: Bisacodyl 5 MG TAB PO PRN (18:49)
--- NOTE | 2018-03-20 18:49 | PDOC.FPRHP ---
- History of Present Illness Chief Complaint: Eye pain, decreased eye movment, blurry vision, dizziness History of Present Illness: 47 yo M w/ PMH of HTN, DMII (poorly controlled) presents for evaluation of 1 day h/o dizziness, changes in vision, blurry vision, "seeing double," and eye pain with movement. He reports symptoms started evening prior to presentation to the ED and have been constant. The symptoms were abrupt onset and he does not note any remitting factors. He does note increased pain in the left eye with left lateral gaze. The pain is retro-orbital behind the left eye only and described as an ache. His blurry vision/double vision is resolved when closing one eye. Visual aponte remain intact w/o blind spots. His partner noted decreased eye movement of the left eye over the same time period as his symptoms. He denies fever, chills, cp, sob, palpitations, recent illnesses, sudden blindness, and eye trauma/irritation. ED Course: Alcaine opthalmic solution - Allergies/Adverse Reactions Allergies Allergy/AdvReac Type Severity Reaction Status Date / Time No Known Allergies Allergy Verified 11/12/17 18:11 - Home Medications Medication Instructions Recorded Confirmed Type Insulin NPH Hum/Reg Insulin HM 25 unit SC HS 03/20/18 03/20/18 History [Novolin 70/30] Insulin NPH Hum/Reg Insulin HM 35 unit SC QAM 03/20/18 03/20/18 History [Novolin 70/30] - History PMHx: HTN, DMII PSHx: Rt fifth toe amputation FHx: Paternal CVA, cousin CVA Social: Denies tobacco, alcohol and drug use - Review of Systems General: denies: fever/chills, night sweats, fatigue Eyes: reports: eye pain, vision changes, other (double vision, blurry vision) ENT: reports: other (bloody nose, resolved). denies: nasal congestion, rhinorrhea Respiratory: denies: cough, congestion, shortness of breath Cardiovascular: denies: chest pain, palpitation, edema Gastrointestinal: denies: nausea, vomiting, diarrhea, constipation, abdominal pain Genitourinary: denies: incontinence, dysuria Skin: denies: rashes, lesions Musculoskeletal: denies: pain, swelling, arthritis/arthralgias Neurological: denies: numbness, syncope, seizure, weakness - Vital signs BP: 171/67 HR: 75 RR: 19 Tmax: 98.3 Pox: 96% on RA Wt: 125Kg - Physical Exam Constitutional: NAD, awake, alert and oriented HEENT: normocephalic and atraumatic, PERRLA, conjunctiva clear, no scleral icterus, grossly normal vision, TM's clear and intact, grossly normal hearing, oropharynx clear, other (Lateral gaze of left eye inhibited/CN6 palsy, no nystagmus) Neck: supple, trachea midline, no LAD, no JVD, no thyromegaly Chest: no-tender to palpation Heart: RRR, normal S1/S2, no murmurs/rubs/gallops, pulses present, no edema Lungs: CTAB, no respiratory distress, good air movement, no rales/rhonchi, no wheezing, no retractions Abdomen: soft, non-tender, bowel sounds present, no masses/distention Musculoskeletal: normal structure, ROM grossly normal Neurological: no focal deficit, normal sensation, other (CN6 deficit, left) Skin: no rash/lesions, capillary refill <2 seconds, no jaundice Heme/Lymphatic: no unusual bruising or bleeding, no petechia Psychiatric: normal mood and affect FMR H&P: Results - Labs Result Diagrams: 03/20/18 12:24 03/20/18 12:24 Lab results: WBC 9.6 thou/uL (4.8-10.8) 03/20/18 12:24 Hgb 15.5 g/dL (14.0-18.0) 03/20/18 12:24 Hct 46.9 % (42.0-52.0) 03/20/18 12:24 MCV 84.9 fl (80.0-94.0) 03/20/18 12:24 Plt Count 286 thou/uL (130-400) 03/20/18 12:24 Neutrophils % 74.0 % (42.0-75.0) 03/20/18 12:24 ESR Westergren 23 mm/hr (Less than 15) 03/20/18 12:24 Sodium 137 mmol/L (136-145) 03/20/18 12:24 Potassium 4.4 mmol/L (3.5-5.1) 03/20/18 12:24 Chloride 105 mmol/L (98-107) 03/20/18 12:24 Carbon Dioxide 26 mmol/L (22-29) 03/20/18 12:24 BUN 17 mg/dL (8.9-20.6) 03/20/18 12:24 Creatinine 1.28 mg/dL (0.6-1.3) 03/20/18 12:24 Glucose 97 mg/dL (70-105) 03/20/18 12:24 Calcium 9.4 mg/dL (7.8-10.44) 03/20/18 12:24 Total Bilirubin 0.7 mg/dL (0.2-1.2) 03/20/18 12:24 AST 17 U/L (5-34) 03/20/18 12:24 ALT 20 U/L (8-55) 03/20/18 12:24 Alkaline Phosphatase 95 U/L (40-150) 03/20/18 12:24 CK-MB (CK-2) 11.2 ng/mL (0-6.6) H* 03/20/18 12:24 C-Reactive Protein 0.58 mg/dL (= or < 0.5) H 03/20/18 16:20 Serum Total Protein 7.1 g/dL (6.0-8.3) 03/20/18 12:24 Albumin 3.8 g/dL (3.5-5.0) 03/20/18 12:24 - EKG Interpretation EKG: NSR, rate 65 - Radiology Interpretation Chest x-ray Status: report reviewed by me (No acute intrathoracic process) CT scan - head Status: report reviewed by me (No acute intracranial process.) FMR H&P: A/P - Problem List (1) 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 Labetalol prn for BP >220/110. Consider starting meds if MRI is negative 3) DMII: Continue home meds. Accuchecks achs, moderate SSI -check A1C 4) Elevated Ck-MB, troponin negative, check CK. Repeat cardiac enzymes. Asymptomatic and EKG NSR w/o st changes. Likely 2/2 elevated ck. 5)PPX: SCDs and Tums for dvt and GI ppx, respectively 6)Code status: Pt wishes to be full code Disposition/LOS: stable, </= 2 days FMR H&P: Upper Level - Pertinent history Patient is a 47 year old male with a history of poorly controlled diabetes and hypertension who presents with one day history of eye pain and double vision. He denies acute eye trauma, vision loss, and fever. He states he has a history of recurrent sinus infections and had an episode of epistaxis yesterday. IOP in R. eye 26/33 visual acuity, left eye: 20/100, right eye: 20/70, both eyes: 20/70. - Pertinent findings pain with lateral eye movement. PERRL. Inability to fully abduct left eye secondary to pain. Otherwise, all other extraocular muscles intact. No periorbital edema or evidence of trauma. Normal fundoscopic exam. - Plan Date/Time: 03/20/181847 I, [Bethany Landaverde], have evaluated this patient and agree with findings/plan as outlined by chemical engineering intern resident. Pertinent changes/additions are listed here. 1. Eye pain with decreased eye movement. - differentials include orbital cellulitis, optic neuritis, acute CVA - neurology consulted from ED. Plan for MRI of brain and orbits with and without contrast. - fasting lipid panel, A1C, 2. Poorly controlled insulin dependent diabetes mellitus type II - we will restart home meds. - A1C - titrate insulin as needed. 3. Hypertension - pt does not take medications. - will monitor. - will allow for permissive HTN due to concern for possible CVA.
[2018-03-20] MEDS ORDERED: Labetalol HCl 100 MG/20 ML VIAL SLOW IVP PRN (18:53)
[2018-03-20] MEDS: Atorvastatin Calcium 40 MG TAB PO SCH (20:47)
[2018-03-20] MEDS ORDERED: HumaLOG 300 UNITS/3 ML VIAL SC PRN (23:18)
[2018-03-20] MEDS ORDERED: Dextrose 5% in Water 1,000 ML IV PRN (23:18)
[2018-03-20] MEDS ORDERED: Dextrose 50% Abboject 50 ML SYRINGE SLOW IVP PRN (23:18)
[2018-03-21 00:20] LABS: Troponin I Less than 0.010 ng/mL (< 0.028)
[2018-03-21] MEDS: Sodium Chloride 0.9% 1,000 ML IV SCH ×4 (00:25→20:23)
[2018-03-21 00:26] LABS: CKMB 7.4 ng/mL (0-6.6); Critical Call CKMBM RESULT DECREASING
[2018-03-21 03:33] VITALS: BMI 34.6
[2018-03-21 05:09] LABS: #Basophils 0.1 thou/uL (0.0-0.2); #Eosinphils 0.2 thou/uL (0.0-0.7); #Lymphocytes 2.8 thou/uL (1.20-3.40); #Monocytes 0.5 thou/uL (0.11-0.59); #Neutrophils 3.7 thou/uL (1.40-6.50); %Basophils 0.9 % (0.0-1.0); %Eosinophils 3.1 % (0.0-10.0); %Lymphocytes 38.4 % (21.0-51.0); %Monocytes 7.3 % (0.0-10.0); %Neutrophils 50.3 % (42.0-75.0); Hemoglobin 15.1 g/dL (14.0-18.0); Mean Corpuscular HGB CONC 33.9 g/dL (32.0-36.0); Mean Corpuscular Hemoglobin 28.6 pg (27.0-31.0); Mean Corpuscular Volume 84.5 fl (80.0-94.0); Mean Platelet Volume 6.3 fL (7.4-10.4); Platelet Count 241 thou/uL (130-400); RBC Distribution Width 12.9 % (11.5-14.5); Red Blood Cell (RBC) Count 5.26 mill/uL (4.70-6.10); White Blood Cell (WBC) Count 7.3 thou/uL (4.8-10.8)
[2018-03-21 05:15] LABS: Hemoglobin A1c 8.3 % (4.0-6.0)
[2018-03-21 05:16] LABS: Anion Gap 10 mmol/L (10-20); BUN (Urea Nitrogen) 17 mg/dL (8.9-20.6); Calc. Creatinine Clearance 142 mL/min (70-130); Carbon Dioxide 24 mmol/L (22-29); Cardiac Risk 5.4 (Less than 4.5); Chloride 106 mmol/L (98-107); Cholesterol 209 mg/dl (< 200 Desired); Estimated GFR-MDRD 68; Glucose 147 mg/dL (70-105); HDL Cholesterol 39 mg/dL (>60 Neg Risk); LDL Cholesterol, Calculated 142 mg/dL; Potassium 3.9 mmol/L (3.5-5.1); Sodium 136 mmol/L (136-145); Triglycerides 139 mg/dL (Less than 150)
--- NOTE | 2018-03-21 06:28 | PDOC.FM ---
- Subjective Subjective: Patient doing well this AM. No significant overnight events. Patient still endorses left eye pain, particularly with lateral gaze. This all started 3 days ago. He denies chills or fevers. He denies any focal deficits or history of CVA. He is able to move eye in all directions, it is just painful to do so. Patient denies chest pain, shortness of breath, or headaches. - Objective MAR Reviewed: Yes Vital Signs & Weight: Vital Signs (12 hours) Temp Pulse Resp BP BP Pulse Ox 03/21/18 03:59 97.7 F 68 18 153/85 H 98 03/21/18 00:00 98.8 F 67 18 146/85 H 96 03/20/18 20:38 97.5 F L 76 18 189/99 H 95 03/20/18 20:05 97.5 F L 76 18 189/99 H 95 Weight Admit Weight 125.781 kg Weight 125.781 kg I&O: 03/19/18 03/20/18 03/21/18 06:59 06:59 06:59 Intake Total 360 Balance 360 Result Diagrams: 03/21/18 04:50 03/21/18 04:50 EKG Reviewed by me: Yes Radiology Reviewed by me: Yes Phys Exam - Physical Examination Constitutional: NAD HEENT: PERRLA, moist MMs, sclera anicteric EOMI, Lateral gaze achieved with minimal amount of pain CN II-XII intact Respiratory: clear to auscultation bilateral Cardiovascular: RRR, no significant murmur Gastrointestinal: soft, non-tender, positive bowel sounds Musculoskeletal: no edema, pulses present Neurological: non-focal, moves all 4 limbs Psychiatric: normal affect, A&O x 3 Skin: no rash, cap refill <2 seconds Dx/Plan (1) 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 Eye pain with decreased lateral gaze - Differentials include orbital cellulitis, optic neuritis, acute CVA, cranial nerve palsy - neurology consulted from ED. Plan for MRI of brain and orbits with and without contrast. - fasting lipid panel showed elevated cholesterol - HgA1c 8.3; uncontrolled type II DM - ESR 23, CRP 0.58 (mild elevations) - CT brain negative for any acute intracranial findings - ASA and statin - IOP in R. eye 26/33 - Visual acuity, left eye: 20/100, right eye: 20/70, both eyes: 20/70 - PE this morning; patient able to perform lateral gaze of left eye with moderate amount of pain 2. Poorly controlled insulin dependent diabetes mellitus type II - we will restart home meds - A1C 8.3 - titrate insulin as needed - Accuchecks ACHS 3. Hypertension - pt does not take medications - will monitor - will allow for permissive HTN due to concern for possible CVA - BP 153/85 this AM 4. 4) Elevated Ck-MB - troponin negative - CK 144 - repeat cardiac enzymes downtrending - asymptomatic and EKG NSR w/o st changes 5. PPX: SCDs and Tums for dvt and GI ppx, respectively 6. Code status: Pt wishes to be full code Disposition/LOS: Patient to stroke unit for obs. Anticipate LOS <48 hours.
--- NOTE | 2018-03-21 07:24 | CON ---
DATE OF CONSULTATION: 03/20/2018 CHIEF COMPLAINT: Double vision. HISTORY OF PRESENT ILLNESS: The patient and report that he has prior history of diabetes and hy pertension. He has not been able afford medical care due to lack of job. His has recently been not very healthy. Therefore, he has been under increased stress. This afternoon he noticed he was seeing double. He came immediately to the emergency room and the ER physician talked to me and I adv ised him to admit him under medical care for all the risk factor evaluation since he has not been mally y compliant with his medical clearance and his medical health issues and the patient is young and had high risk for stroke. CURRENT MEDICATIONS: At home, he takes insulin 30 units in the morning and 25 units at night. He is not on any aspirin or any antiplatelet agents. He has numbness in his legs. No weakness or any facial droop or speech problems or loss of conscious ness or dizziness along with his symptoms. PREVIOUS MEDICAL HISTORY: Positive for type 2 diabetes and hypertension and he is not very compliant . FAMILY HISTORY: Negative for stroke, but positive for hypertension and diabetes. SOCIAL HISTORY: He does not drink. He does not smoke. He lives with his . He has had problems with his employment recently and is also under increased stress. ALLERGIES: No known drug allergies. REVIEW OF SYSTEMS: Pulmonary: Normal. Cardiac: Normal. Genitourinary: Normal. Gastrointestinal : Normal. Endocrine: Positive for diabetes. Cardiac: Positive for hypertension. Neurological: Positive for double vision examination. LABORATORY DATA: Laboratory workup so far white count 9.6, hemoglobin 15.5, hematocrit 46.9, platele ts 286. Chemistry: Sodium 137, potassium 4.4, chloride 105, bicarbonate 26, BUN 17, creatinine 1.28 , AST 17, ALT 20. C-reactive protein 0.[address] of the head did not show any evidence of acute intracranial process. PHYSICAL EXAMINATION: VITAL SIGNS: On admission to the ER were 171/67, pulse 75, respiratory rate 19, O2 sats 96. GENERAL APPEARANCE: Well-built, well-nourished gentleman, who is comfortable in bed. CHEST: Clear vesicular breathing. CARDIOVASCULAR: S1, S2 heard. No murmurs. Carotids are clear. ABDOMEN: Soft, nontender. No organomegaly noted. NEUROLOGICAL: Higher intellectual functions, normal orientation to time, place and person and approp riate conversation. Cranial nerves II-XII normal except for his cranial nerve . He has abducens ne rve palsy on the left side. Normal pupillary reaction. Normal fundus. Normal sensation of face amos aterally. No facial asymmetry. Tongue midline. No atrophy noted. Normal hearing bilaterally. Nor mal elevation of palate. Tongue midline. No atrophy. MOTOR: Bulk normal, tone normal, and Strength 5/5 throughout in upper and lower extremities bilatera lly. Deep tendon reflexes absent throughout. SENSORY: Normal touch, pinprick, proprioception, vibration bilaterally in upper extremities, but imp aired distally in lower extremities. CEREBELLAR: [id number], [id number] are both normal. IMPRESSION: The patient is a 47-year-old man with poorly controlled hypertension and diabetes and he also has history of having poor compliance. He is currently not on antiplatelet agents at home. He has history of sudden onset diplopia. He also has possible osteomyelitis according to primary care note and he has been started on antibiotics. His neurological examination is positive for left abduc ens nerve palsy. RECOMMENDATIONS: 1. MRI of the brain with and without contrast. 2. Management of his risk factors. 3. Monitor for any acute neurological changes. PLAN: I will follow up with you during this hospitalization in the morning.
[2018-03-21] MEDS ORDERED: Enoxaparin Sodium 40 MG/0.4 ML SYRINGE SC SCH (09:00)
[2018-03-21] MEDS: Aspirin 81 mg Enteric Coated Tablet PO SCH (09:26)
[2018-03-21] MEDS: Insulin NPH/Reg Insulin Hm 300 UNITS/3 ML VIAL SC SCH (10:04)
[2018-03-21] MEDS ORDERED: Labetalol HCl 100 MG/20 ML VIAL SLOW IVP PRN ×2 (10:37→11:55)
[2018-03-21] MEDS ORDERED: Lisinopril 10 MG TAB PO SCH (12:00)
[2018-03-21] MEDS: Lisinopril 10 MG TAB PO SCH (12:25)
--- NOTE | 2018-03-21 13:08 | ULT ---
BILATERAL CAROTID DUPLEX ULTRASOUND: Date: 03/21/18 HISTORY: TIA. FINDINGS: Real-time color Doppler evaluation of the right and left carotid systems was performed. This showed c alcified plaque formation at the origin of both internal carotid arteries. On the right side, peak systolic velocities of the common carotid were 80 cm/second. Internal carotid velocities were 74 cm/second and external carotid velocities were 78 cm/second. On the left side, peak systolic velocities of the common carotid were 91 cm/second. Internal carotid velocities were 64 cm/second and external carotid velocities were 76 cm/second. Vertebral flow was antegrade bilaterally. IMPRESSION: No evidence of hemodynamically significant stenosis of either internal carotid artery. POS: SANDRA
--- NOTE | 2018-03-21 14:06 | PRG ---
DATE OF SERVICE: 03/21/2018 FOLLOWUP NOTE CHIEF COMPLAINT: Double vision. INTERVAL HISTORY: The patient reports there has been no interval change in his double vision. He is also going through workup for his stroke and at the same time he has uncontrolled diabetes and hypertension which are being managed at this time. LABORATORY DATA: His current workup, laboratory reports show normal hemoglobin at 15.1, hematocrit 44.5, white count 7.3, and platelets 241. Sodium 136, potassium 3.9, chloride 106, BUN 17, creatinine 1.16, glucose is still trending slightly high, hemoglobin A1c is 8.3. Cholesterol is 209 and his carotid doppler study was completed and did not show any hemodynamically significant stenosis. He is pending echocardiogram, brain MRI was completed, but report is pending. PHYSICAL EXAMINATION: VITAL SIGNS: Blood pressure 206/99, temperature 97.5, and pulse is 89. CHEST: Clear vesicular breathing. CARDIOVASCULAR: S1, S2 heard, no murmurs. NEUROLOGIC: He has left sixth nerve palsy. Otherwise, rest of neurological examination is normal. IMPRESSION: Patient is a 47-year-old man with left sixth nerve palsy likely from diabetes and his hypertension. At this time, his risk factors are quite poorly controlled diabetes and he also has difficulties with controlling his hypertension as well. RECOMMENDATIONS: I will follow up on the MRI report Please consider an eye patch for his left eye, so he can see better\ Please complete his stroke work up. Call me if there are any changes to his neurological status. I will see him tomorrow. MAYA
--- NOTE | 2018-03-21 14:11 | MRI ---
MRI BRAIN WITH AND WITHOUT CONTRAST: Date: 03/21/18 HISTORY: 47-year-old male with left lateral rectus palsy, resulting in diplopia and dizziness. TECHNIQUE: Multiple sequences obtained in axial, sagittal, and coronal planes; pre and post IV injection of gado linium-based contrast agent: 20 mL MultiHance. Cranial nerve protocol was performed, including 3D CISS axial sequence, and thin slice coronal and ax ial T1 VIBE, through skull base. FINDINGS: The ventricles are normal in size and configuration. There is no restricted diffusion, abnormal intr aaxial enhancement, mass, midline shift or any other mass effect, recent intraaxial hemorrhage, or ex traaxial fluid collection. There are a few scattered punctate T2-hyperintensities in the cerebral whi te matter consistent with mild chronic ischemic white matter changes due to mild microvascular athero sclerosis. No abnormal enhancement or mass is identified involving the cisternal segment of the left abducens (6 th cranial) nerve. There is no bone marrow signal abnormality or destructive osseous lesion involving the sphenoid body, including region of Dorello's canal. Cavernous sinuses are bilaterally symmetrica l and normal. No mass is identified involving the orbital apices. Extraocular muscles are bilaterally symmetrical. Incidentally, there is a small left mastoid effusion. IMPRESSION: 1. Mild chronic ischemic white matter changes. 2. Small left mastoid effusion. 3. Otherwise negative. kip[] POS: [facility]
[2018-03-21] MEDS: Atorvastatin Calcium 40 MG TAB PO SCH (20:22)
[2018-03-21] MEDS ORDERED: Insulin NPH/Reg Insulin Hm 300 UNITS/3 ML VIAL SC SCH (21:00)
[2018-03-22 05:06] LABS: #Basophils 0.1 thou/uL (0.0-0.2); #Eosinphils 0.2 thou/uL (0.0-0.7); #Monocytes 0.6 thou/uL (0.11-0.59); %Basophils 0.8 % (0.0-1.0); %Eosinophils 2.5 % (0.0-10.0); %Lymphocytes 38.3 % (21.0-51.0); %Monocytes 7.4 % (0.0-10.0); %Neutrophils 50.9 % (42.0-75.0); Hemoglobin 14.1 g/dL (14.0-18.0); Mean Corpuscular HGB CONC 33.5 g/dL (32.0-36.0); Mean Corpuscular Hemoglobin 28.4 pg (27.0-31.0); Mean Platelet Volume 6.4 fL (7.4-10.4); Platelet Count 236 thou/uL (130-400); RBC Distribution Width 12.8 % (11.5-14.5); Red Blood Cell (RBC) Count 4.97 mill/uL (4.70-6.10); White Blood Cell (WBC) Count 7.9 thou/uL (4.8-10.8)
[2018-03-22 05:19] LABS: Anion Gap 8 mmol/L (10-20); BUN (Urea Nitrogen) 18 mg/dL (8.9-20.6); Calc. Creatinine Clearance 147 mL/min (70-130); Calcium 8.2 mg/dL (7.8-10.44); Carbon Dioxide 23 mmol/L (22-29); Chloride 107 mmol/L (98-107); Estimated GFR-MDRD 71; Glucose 140 mg/dL (70-105); Potassium 3.5 mmol/L (3.5-5.1); Sodium 134 mmol/L (136-145)
[2018-03-22] MEDS: Sodium Chloride 0.9% 1,000 ML IV SCH (05:26)
--- NOTE | 2018-03-22 06:26 | PDOC.FM ---
- Subjective Subjective: Patient doing well this AM. No significant overnight events. Eye pain has improved, but patient still endorses blurry vision. Patient denies headache, shortness of breath, or chest pain. No focal deficits. Neurological status has remained intact. Discussed PCP of which patient does not have. Advised patient to follow with [facility] as he does not have insurance currently. Discussed new medications to include BP medication, cholesterol medication, and ASA. - Objective MAR Reviewed: Yes Vital Signs & Weight: Vital Signs (12 hours) Temp Pulse Resp BP Pulse Ox 03/22/18 04:56 99 03/22/18 03:50 98.7 F 70 16 124/63 99 03/22/18 00:24 97 03/21/18 23:47 98.0 F 67 16 140/77 97 03/21/18 20:12 98.0 F 67 16 97 03/21/18 20:00 97.4 F L 74 18 117/72 96 Weight Admit Weight 125.781 kg Weight 125.781 kg I&O: 03/20/18 03/21/18 03/22/18 06:59 06:59 06:59 Intake Total 480 1500 Balance 480 1500 Result Diagrams: 03/22/18 04:24 03/22/18 04:24 EKG Reviewed by me: Yes Radiology Reviewed by me: Yes Phys Exam - Physical Examination Constitutional: NAD HEENT: PERRLA, moist MMs, sclera anicteric Improved lateral gaze, but cannot look all the way to left with left eye Neck: supple Respiratory: clear to auscultation bilateral Cardiovascular: RRR, no significant murmur Gastrointestinal: soft, no distention, positive bowel sounds Musculoskeletal: no edema, pulses present Neurological: non-focal, moves all 4 limbs Psychiatric: normal affect, A&O x 3 Skin: no rash, cap refill <2 seconds Dx/Plan (1) 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 Eye pain with decreased lateral gaze - Differentials include orbital cellulitis, optic neuritis, acute CVA, cranial nerve palsy - fasting lipid panel showed elevated cholesterol - HgA1c 8.3; uncontrolled type II DM - ESR 23, CRP 0.58 (mild elevations) - CT brain negative for any acute intracranial findings - ASA and statin - IOP in R. eye 26/33 - Visual acuity, left eye: 20/100, right eye: 20/70, both eyes: 20/70 - MRI of brain and orbits shows only a small left mastoid effusion - Will order left eye patch for patient to help with blurry vision. - Establish with [facility]. Will need close follow up 2. Poorly controlled insulin dependent diabetes mellitus type II - we will restart home meds - A1C 8.3 - titrate insulin as needed - Accuchecks ACHS 3. Hypertension - pt does not take medications - started patient on lisinopril - Labetolol PRN - BP 124/63 this AM 4. 4) Elevated Ck-MB - troponin negative - CK 144 - repeat cardiac enzymes downtrending - asymptomatic and EKG NSR w/o st changes 5. PPX: SCDs and Tums for dvt and GI ppx, respectively 6. Code status: Pt wishes to be full code Disposition/LOS: Patient to stroke unit for obs. Consider discharge home today with outpatient follow up pending further neurology recs.
[2018-03-22] MEDS: Insulin NPH/Reg Insulin Hm 300 UNITS/3 ML VIAL SC SCH (09:11)
[2018-03-22] MEDS: Aspirin 81 mg Enteric Coated Tablet PO SCH (09:11)
[2018-03-22] MEDS: Lisinopril 10 MG TAB PO SCH (09:11)
[2018-03-22 11:47] VITALS: BP 145/78; TEMP 98
--- NOTE | 2018-03-22 12:41 | PRG ---
DATE OF SERVICE: 03/22/2018 INTERVAL HISTORY: The patient is doing well except for his double vision and has pain in the left eye is better, but he still complains of blurred vision and double vision. His vital signs have improving as far as his hypertension and his glucose levels are still high. LABORATORY DATA: Sodium 134, potassium 3.5, bicarbonate 23, BUN 18, creatinine 1.12, random glucose levels are still high and his white count is 7.9, hemoglobin 14.1, hematocrit 42.2, and platelets 236. PHYSICAL EXAMINATION: VITAL SIGNS: Blood pressure 123/67, temperature 97.7, pulse 69, and respiratory rate 16. GENERAL APPEARANCE: Well-built, well-nourished gentleman. NEUROLOGICAL: Higher intellectual functions are normal. CRANIAL NERVES: He has left sixth nerve palsy. Rest of the cranial nerves are normal. MOTOR: Normal tone and bulk. Strength is 5/5 in upper and lower extremities. IMPRESSION: Patient is a 47-year-old man, who suffered a minor ischemic event to his left eye involving the sixth cranial nerve. Rest of his neurological exam is normal. He has hypertension and hyperglycemia. Motor still uncontrolled to some degree. He has not been receiving proper primary medical care due to lack of access and lack of funds. 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 RECOMMENDATIONS: He needs to set up some kind of plan to have a primary care physician, who can monitor his abnormal labs and he will need to closely follow up with his primary care doctor and also consider ophthalmology consultation for diplopia as out patient. He can wear an eye patch temporarily to help him see you with one eye and avoid diplopia. Call Neurology if you have any further questions. ADDENDUM: MRI of the brain report was reviewed by me and his MRI shows mild chronic white matter changes, small left mastoid effusion, otherwise negative for acute infarct. DOMINICKD
--- NOTE | 2018-03-22 13:12 | ADD-PRG ---
ADDENDUM DATE OF SERVICE: 03/22/2018 Please see note from Dr. Francisco, for which I concur. Basically, no change in neurologic status, M RI looked fine, so this sounds like a left-sided sixth nerve palsy, likely from uncontrolled diabetes and risk factors with that and so, we will send him out, probably get outpatient ophthalmology as we ll to follow him and to control his diabetes, blood pressure, and cholesterol. Urged compliance on m edications on all those.
--- NOTE | 2018-03-22 14:03 | ADD-HP ---
ADDENDUM Please see the note from Dr. Gui Restrepo for which I concur. The patient was seen and evaluated, examine d and discussed with the residents by bedside. HISTORY OF PRESENT ILLNESS: A 47-year-old with diabetes, has already lead to an amputation on the ri ght fifth toe this year, who came in certainly seeing double vision and left eye pain and inability t o look toward the left. He became obvious that he is basically got a 6th nerve palsy, likely on the left side. Initial CT did not show a stroke. Neurology was consulted from the ER and was told that this is likely something that may need to evaluate and wanted him admitted. So we are admitting him for a workup. No other headaches, chest pain, shortness of breath. No other weakness or neurologic symptoms beyond this particular issue. PAST MEDICAL HISTORY: All reviewed in the resident's history and physical. PAST SURGICAL HISTORY: All reviewed in the resident's history and physical. MEDICATIONS: All reviewed in the resident's history and physical. REVIEW OF SYSTEMS: All reviewed in the resident's history and physical. FAMILY HISTORY: All reviewed in the resident's history and physical. PHYSICAL EXAMINATION: VITAL SIGNS: Alert and oriented x3. CRANIAL NERVES: Cranial nerves II-XII definitely show obviously that he cannot have a lateral gaze w ith the left eye only. The rest of the cranial nerves are intact. NECK: No bruits, no JVD. CHEST: Clear. CARDIOVASCULAR: Regular rate and rhythm. ABDOMEN: Benign. NEUROLOGIC: The rest of the neurologic exam is completely normal. LABORATORY AND X-RAY FINDINGS: Reviewed also fairly noncontributory as is the chest x-ray and a CT o f the head. ASSESSMENT AND PLAN: 1. Left eye 6th nerve palsy, likely from tiny small blood vessel disease from the diabetes. We will see what Neurology says. We are getting an MRI of the brain and orbit, etc., but likely just need t o aggressively treat the diabetes, put him on aspirin daily and put him on lipid lowering agents and certainly this problem does not seem to resolve, may have to get him set up to see an nuclear fuels reclamation engineer to see if they can do some things to the muscles to try to help diminish the diplopia. 2. Diabetes. Continue home insulin sliding scale. 3. Hypertension. Just p.r.n. meds for now. We will monitor the blood pressure. Everything else pe r the resident's history and physical for which I concur.
[2018-03-23 15:21] LABS: Lyme IgG/IgM AB <0.91 ISR (0.00-0.90)
== END 2018-03-22 14:15 | disposition home or self-care (01) ==
LOC: ERS 11:14 → 2SE 19:45 → INTOOBSV 19:45
PROVIDERS: ADMIT Family Medicine; ATTEND Family Medicine
DX: H49.22 Sixth [abducent] nerve palsy, left eye (principal); E11.65 Type 2 diabetes mellitus with hyperglycemia; H57.12 Ocular pain, left eye; I10 Essential (primary) hypertension; E78.5 Hyperlipidemia, unspecified; Z79.4 Long term (current) use of insulin; Z91.14 Patient's other noncompliance with medication regimen
CPT/HCPCS: 36415; 36416; 70450; 70553; 71045; 80048; 80053; 80061; 82553; 83036; 84484; 85025; 85652; 86140; 86618; 86780; 93005; 93880; 96361; 96374; A4216; G0378; G8978-GP-CJ; G8979-GP-CH; G8996-GN-CH; G8997-GN-CH

== ENCOUNTER 2018-10-26 19:02 | Emergency (ER) | payer SELFPAY ==
[2018-10-26] MEDS ORDERED: Ibuprofen 800 MG TAB ONE (19:30)
--- NOTE | 2018-10-26 19:48 | RAD ---
TWO VIEWS CHEST: Comparison: 03-20-18 History: Cough FINDINGS: Two views of the chest show normal sized cardiomediastinal silhouette. There is no evidence of consol idation, mass, or pleural effusion. The bones are unremarkable. IMPRESSION: No evidence of acute cardiopulmonary disease. POS: [facility]
== END 2018-10-26 19:58 | disposition home or self-care (01) ==
LOC: ERS 19:02
DX: J20.9 Acute bronchitis, unspecified (principal); E11.9 Type 2 diabetes mellitus without complications; I10 Essential (primary) hypertension
CPT/HCPCS: 71046

== ENCOUNTER 2019-02-10 12:58 | Emergency (ER) | payer SELFPAY ==
[2019-02-10] MEDS ORDERED: Dexamethasone 10 MG/ML VIAL ONE (14:19)
[2019-02-10] MEDS ORDERED: diphenhydrAMINE 25 MG CAP ONE (14:24)
[2019-02-10] MEDS ORDERED: Famotidine 20 MG TAB ONE (14:24)
== END 2019-02-10 14:31 | disposition home or self-care (01) ==
LOC: ERS 12:58
DX: T78.40XA Allergy, unspecified, initial encounter (principal); E78.5 Hyperlipidemia, unspecified; E11.9 Type 2 diabetes mellitus without complications; I10 Essential (primary) hypertension
CPT/HCPCS: 36416; 99283; J1100; Q0163

== ENCOUNTER 2019-07-17 12:38 | Emergency (ER) | payer SELFPAY ==
[2019-07-17 13:52] LABS: #Basophils 0.1 thou/uL (0.0-0.2); #Eosinphils 0.2 thou/uL (0.0-0.7); #Lymphocytes 2.1 thou/uL (1.20-3.40); #Monocytes 0.6 thou/uL (0.11-0.59); #Neutrophils 5.9 thou/uL (1.40-6.50); %Basophils 0.9 % (0.0-1.0); %Eosinophils 1.8 % (0.0-10.0); %Lymphocytes 24.1 % (21.0-51.0); %Monocytes 6.2 % (0.0-10.0); %Neutrophils 66.9 % (42.0-75.0); Hemoglobin 15.1 g/dL (14.0-18.0); Mean Corpuscular HGB CONC 33.7 g/dL (32.0-36.0); Mean Corpuscular Hemoglobin 28.7 pg (27.0-31.0); Mean Platelet Volume 6.6 fL (7.4-10.4); Platelet Count 299 thou/uL (130-400); RBC Distribution Width 12.5 % (11.5-14.5); Red Blood Cell (RBC) Count 5.27 mill/uL (4.70-6.10); White Blood Cell (WBC) Count 8.8 thou/uL (4.8-10.8)
[2019-07-17 14:12] LABS: ALT (SGPT) 23 U/L (8-55); AST (SGOT) 17 U/L (5-34); Albumin 4.1 g/dL (3.5-5.0); Alkaline Phosphatase 110 U/L (40-150); Anion Gap 11 mmol/L (10-20); BUN (Urea Nitrogen) 25 mg/dL (8.9-20.6); Bilirubin, Total 0.6 mg/dL (0.2-1.2); Calc. Creatinine Clearance 0 mL/min (70-130); Calcium 9.7 mg/dL (7.8-10.44); Carbon Dioxide 23 mmol/L (22-29); Chloride 104 mmol/L (98-107); Estimated GFR-MDRD 53; Globulin 3.2 g/dL (2.4-3.5); Glucose 207 mg/dL (70-105); Potassium 4.1 mmol/L (3.5-5.1); Protein, Total 7.3 g/dL (6.0-8.3); Sodium 134 mmol/L (136-145)
--- NOTE | 2019-07-17 14:13 | RAD ---
FINGERS LEFT HAND 3 VIEWS: Date: 07/17/19 INDICATION: Pain and swelling left middle finger. FINDINGS: No fracture or osseous abnormality. No soft tissue abnormality. Mild soft tissue swelling at the PIP joint. IMPRESSION: No acute abnormality. POS: OFF
[2019-07-17] MEDS ORDERED: Ketorolac Tromethamine 30 MG/ML VIAL ONE (14:30)
== END 2019-07-17 14:55 | disposition home or self-care (01) ==
LOC: ERS 12:38
DX: L03.012 Cellulitis of left finger (principal); E78.5 Hyperlipidemia, unspecified; E78.00 Pure hypercholesterolemia, unspecified; E11.9 Type 2 diabetes mellitus without complications; I10 Essential (primary) hypertension
CPT/HCPCS: 36415; 80053; 85025; 96372; J1885

== ENCOUNTER 2021-02-22 22:15 | Emergency (ER) | payer OTHER, SELFPAY ==
[2021-02-23 02:52] LABS: SARS-CoV-2 NAA Rapid Test Not Detected (NotDetected)
== END 2021-02-22 23:01 | disposition home or self-care (01) ==
LOC: ERS 22:15
DX: B34.9 Viral infection, unspecified (principal); Z20.822 Contact with and (suspected) exposure to COVID-19; E78.5 Hyperlipidemia, unspecified; E78.00 Pure hypercholesterolemia, unspecified; E11.9 Type 2 diabetes mellitus without complications; I10 Essential (primary) hypertension
CPT/HCPCS: 0240U; 99284

== ENCOUNTER 2021-05-21 02:07 | Emergency (ER) | payer SELFPAY | END 2021-05-21 03:27 | disposition home or self-care (01) | LOC: ERS 02:07 | DX: M79.89 Other specified soft tissue disorders (principal); E78.5 Hyperlipidemia, unspecified; E78.00 Pure hypercholesterolemia, unspecified; E11.9 Type 2 diabetes mellitus without complications; I10 Essential (primary) hypertension; Z79.84 Long term (current) use of oral hypoglycemic drugs; Z79.899 Other long term (current) drug therapy | CPT/HCPCS: 36415; 85379 ==

== ENCOUNTER 2022-07-10 18:03 | Emergency (ER) | payer SELFPAY ==
[2022-07-10 19:28] LABS: #Basophils 0.1 thou/uL (0.0-0.2); #Eosinphils 0.4 thou/uL (0.0-0.7); #Lymphocytes 2.3 thou/uL (1.20-3.40); #Monocytes 0.8 thou/uL (0.11-0.59); #Neutrophils 6.9 thou/uL (1.40-6.50); %Basophils 0.9 % (0.0-1.0); %Eosinophils 3.8 % (0.0-10.0); %Lymphocytes 21.6 % (21.0-51.0); %Monocytes 7.2 % (0.0-10.0); %Neutrophils 66.5 % (42.0-75.0); Hemoglobin 12.5 g/dL (14.0-18.0); Mean Corpuscular HGB CONC 32.9 g/dL (32.0-36.0); Mean Corpuscular Hemoglobin 28.9 pg (27.0-31.0); Mean Corpuscular Volume 87.8 fL (78.0-98.0); Mean Platelet Volume 6.9 fL (7.4-10.4); Platelet Count 299 thou/uL (130-400); RBC Distribution Width 12.7 % (11.5-14.5); Red Blood Cell (RBC) Count 4.33 mill/uL (4.70-6.10); White Blood Cell (WBC) Count 10.4 thou/uL (4.8-10.8)
[2022-07-10 19:54] LABS: ALT (SGPT) 18 U/L (8-55); AST (SGOT) 16 U/L (5-34); Albumin 3.9 g/dL (3.5-5.0); Alkaline Phosphatase 110 U/L (40-110); Anion Gap 16 mmol/L (10-20); BUN (Urea Nitrogen) 35 mg/dL (8.9-20.6); Bilirubin, Total 0.4 mg/dL (0.2-1.2); Calc. Creatinine Clearance 0 mL/min (70-130); Calcium 9.2 mg/dL (7.8-10.44); Carbon Dioxide 22 mmol/L (22-29); Chloride 105 mmol/L (98-107); Estimated GFR 40; Globulin 3.2 g/dL (2.4-3.5); Glucose 73 mg/dL (70-105); Potassium 4.2 mmol/L (3.5-5.1); Protein, Total 7.1 g/dL (6.0-8.3); Sodium 139 mmol/L (136-145)
== END 2022-07-10 20:55 | disposition home or self-care (01) ==
LOC: ERS 18:03
DX: G81.91 Hemiplegia, unspecified affecting right dominant side (principal); E11.9 Type 2 diabetes mellitus without complications; I10 Essential (primary) hypertension; Z86.73 Personal history of transient ischemic attack (TIA), and cerebral infarction without residual deficits; E78.00 Pure hypercholesterolemia, unspecified
CPT/HCPCS: 36415; 70450; 80053; 83880; 84484; 85025

== ENCOUNTER 2023-01-23 20:40 | Inpatient (IN) | payer MEDICAID ==
[2023-01-23 21:48] LABS: #Basophils 0.1 thou/uL (0.0-0.2); #Lymphocytes 0.9 thou/uL (1.20-3.40); #Monocytes 0.8 thou/uL (0.11-0.59); #Neutrophils 10.6 thou/uL (1.40-6.50); %Basophils 0.4 % (0.0-1.0); %Eosinophils 0.4 % (0.0-10.0); %Lymphocytes 6.9 % (21.0-51.0); %Monocytes 6.7 % (0.0-10.0); %Neutrophils 85.5 % (42.0-75.0); Hemoglobin 13.8 g/dL (14.0-18.0); Mean Corpuscular HGB CONC 33.4 g/dL (32.0-36.0); Mean Corpuscular Hemoglobin 29.2 pg (27.0-31.0); Mean Corpuscular Volume 87.3 fl (78.0-98.0); Mean Platelet Volume 6.4 fL (7.4-10.4); Platelet Count 343 10x3/uL (130-400); RBC Distribution Width 12.7 % (11.5-14.5); Red Blood Cell (RBC) Count 4.75 mill/uL (4.70-6.10); White Blood Cell (WBC) Count 12.4 10x3/uL (4.8-10.8)
[2023-01-23 22:15] LABS: ALT (SGPT) 15 U/L (8-55); AST (SGOT) 16 U/L (5-34); Albumin 3.9 g/dL (3.5-5.0); Alkaline Phosphatase 122 U/L (40-110); Anion Gap 14 mmol/L (10-20); BUN (Urea Nitrogen) 31 mg/dL (8.4-25.7); Bilirubin, Total 0.8 mg/dL (0.2-1.2); Calc. Creatinine Clearance 0 mL/min (70-130); Calcium 9.5 mg/dL (7.8-10.44); Carbon Dioxide 22 mmol/L (22-29); Chloride 102 mmol/L (98-107); Estimated GFR 34; Globulin 3.6 g/dL (2.4-3.5); Glucose 191 mg/dL (70-105); Lipase 22 U/L (8-78); Potassium 4.6 mmol/L (3.5-5.1); Protein, Total 7.5 g/dL (6.0-8.3); Sodium 133 mmol/L (136-145)
[2023-01-23] MEDS ORDERED: Cefepime 2 GM VIAL ONE (22:33)
[2023-01-23] MEDS ORDERED: Vancomycin HCl 2.5 GM in Sodium Chloride 0.9% 500 ML IVPB SCH (23:30)
[2023-01-23 23:33] LABS: Bacteria/HPF None Seen HPF (None Seen); Bilirubin Negative (Negative); Blood, Urine 1+ (Negative); Clarity Clear (Clear); Glucose, Urine (Dipstick) Normal (Negative); Ketone, Urine Negative (Negative); Leukocyte Negative Leu/uL (Negative); Nitrite Negative (Negative); Protein, Urine (Dipstick) 100 mg/dL (Neg-Trace); Specific Gravity, Urine 1.015 (1.002-1.036); Squamous Epithelial 0-3 HPF (0-3); Urobilinogen Normal mg/dL (Less than 2); WBC/HPF 0-3 HPF (0-3); pH, Urine 5.5 (5.0-9.0)
[2023-01-24] MEDS ORDERED: Acetaminophen 325 MG TAB ONE (00:51)
[2023-01-24 01:07] VITALS: BMI 36.2
[2023-01-24] MEDS ORDERED: Acetaminophen 325 MG TAB PO PRN (05:52)
[2023-01-24] MEDS ORDERED: HumaLOG 300 UNITS/3 ML VIAL SC PRN ×2 (05:56)
[2023-01-24] MEDS ORDERED: Dextrose 5% in Water 1,000 ML IV PRN (05:56)
[2023-01-24] MEDS ORDERED: Dextrose 50% Abboject 50 ML SYRINGE SLOW IVP PRN (05:56)
[2023-01-24] MEDS ORDERED: Meropenem 1 GM in Sodium Chloride 0.9% 100 ML IVPB SCH (06:00)
[2023-01-24 09:19] LABS: #Eosinphils 0.1 thou/uL (0.0-0.7); #Lymphocytes 1.2 thou/uL (1.20-3.40); #Monocytes 1.1 thou/uL (0.11-0.59); %Basophils 0.3 % (0.0-1.0); %Eosinophils 1.4 % (0.0-10.0); %Lymphocytes 11.2 % (21.0-51.0); %Monocytes 10.1 % (0.0-10.0); %Neutrophils 77.1 % (42.0-75.0); Hemoglobin 12.6 g/dL (14.0-18.0); Mean Corpuscular HGB CONC 33.9 g/dL (32.0-36.0); Mean Corpuscular Hemoglobin 29.5 pg (27.0-31.0); Mean Corpuscular Volume 87.2 fl (78.0-98.0); Mean Platelet Volume 6.6 fL (7.4-10.4); Platelet Count 272 10x3/uL (130-400); RBC Distribution Width 12.7 % (11.5-14.5); Red Blood Cell (RBC) Count 4.27 mill/uL (4.70-6.10); White Blood Cell (WBC) Count 10.4 10x3/uL (4.8-10.8)
[2023-01-24 09:47] LABS: Anion Gap 12 mmol/L (10-20); BUN (Urea Nitrogen) 26 mg/dL (8.4-25.7); Calc. Creatinine Clearance 86 mL/min (70-130); Calcium 8.6 mg/dL (7.8-10.44); Carbon Dioxide 21 mmol/L (22-29); Chloride 106 mmol/L (98-107); Estimated GFR 43; Glucose 138 mg/dL (70-105); Potassium 4.1 mmol/L (3.5-5.1); Sodium 135 mmol/L (136-145)
[2023-01-24] MEDS ORDERED: Dulaglutide [Trulicity] 0.75 MG/0.5 ML Pen.Injctr SC SCH (12:45)
[2023-01-24] MEDS ORDERED: FENTANYL 50 MCG/ML 1 ML VIAL ONE ×3 (14:12→15:44)
[2023-01-24] MEDS ORDERED: PROPOFOL 200 MG/20 ML VIAL ONE (14:24)
[2023-01-24] MEDS ORDERED: Rocuronium Bromide 10 MG/ML (10ML VIAL) ONE (14:24)
[2023-01-24] MEDS ORDERED: Ondansetron PF 4 MG/2 ML Vial ONE (14:24)
[2023-01-24] MEDS ORDERED: Lidocaine 1% PF 5 ML VIAL ONE (14:24)
[2023-01-24] MEDS ORDERED: Metoclopramide HCl 10 MG/2 ML VIAL ONE (14:24)
[2023-01-24] MEDS ORDERED: Ondansetron HCl/PF 4 MG/2 ML Vial IVP PRN (14:46)
[2023-01-24] MEDS ORDERED: Promethazine HCl 25 MG/ML VIAL IM PRN (14:46)
[2023-01-24] MEDS ORDERED: SUGAMMADEX SODIUM 200 MG/2 ML VIAL ONE (14:59)
[2023-01-24] MEDS ORDERED: Acetaminophen 500 MG TAB PO PRN (15:34)
[2023-01-24] MEDS ORDERED: Acetaminophen 500 MG TAB PO SCH (15:45)
[2023-01-24] MEDS: Meropenem 1 GM in Sodium Chloride 0.9% 100 ML IVPB SCH ×3 (16:26→21:36)
[2023-01-24] MEDS: traMADol HCl 50 MG TAB PO PRN (16:31)
[2023-01-24] MEDS: Atorvastatin Calcium 40 MG TAB PO SCH (21:35)
[2023-01-24] MEDS: Insulin Glargine 30 UNITS/0.3 ML VIAL SC SCH (21:35)
[2023-01-24] MEDS: metFORMIN 500 MG TAB PO SCH (21:35)
[2023-01-25] MEDS ORDERED: Vancomycin 1.5 GRAM/300 ML BAG 1.5 GM in Premix Bag 1 BAG IVPB SCH (02:00)
[2023-01-25] MEDS: traMADol HCl 50 MG TAB PO PRN (03:47)
[2023-01-25] MEDS: Meropenem 1 GM in Sodium Chloride 0.9% 100 ML IVPB SCH (06:22)
[2023-01-25 07:34] LABS: Anion Gap 12 mmol/L (10-20); BUN (Urea Nitrogen) 23 mg/dL (8.4-25.7); Calc. Creatinine Clearance 92 mL/min (70-130); Calcium 8.3 mg/dL (7.8-10.44); Carbon Dioxide 21 mmol/L (22-29); Chloride 106 mmol/L (98-107); Estimated GFR 46; Glucose 115 mg/dL (70-105); Potassium 3.9 mmol/L (3.5-5.1); Sodium 135 mmol/L (136-145)
[2023-01-25] MEDS: Aspirin 81 mg Enteric Coated Tablet PO SCH (08:36)
[2023-01-25] MEDS: Metoprolol Tartrate 100 MG TAB PO SCH (08:36)
[2023-01-25] MEDS: metFORMIN 500 MG TAB PO SCH ×2 (08:36→20:31)
[2023-01-25] MEDS: Insulin Glargine 30 UNITS/0.3 ML VIAL SC SCH ×2 (08:36→20:31)
[2023-01-25] MEDS: Chlorthalidone 25 MG TAB PO SCH (08:36)
[2023-01-25] MEDS ORDERED: Amlodipine 5 MG TAB PO SCH (12:00)
[2023-01-25] MEDS: Atorvastatin Calcium 40 MG TAB PO SCH (20:31)
[2023-01-25] MEDS ORDERED: Amoxicillin/Potassium Clav 875 MG TAB PO SCH (21:00)
[2023-01-25] MEDS ORDERED: Sulfameth/Trimethoprim DS 800-160mg TAB PO SCH (21:00)
[2023-01-26] MEDS: traMADol HCl 50 MG TAB PO PRN (03:48)
[2023-01-26 07:57] LABS: Anion Gap 15 mmol/L (10-20); BUN (Urea Nitrogen) 25 mg/dL (8.4-25.7); Calc. Creatinine Clearance 85 mL/min (70-130); Calcium 8.3 mg/dL (7.8-10.44); Carbon Dioxide 14 mmol/L (22-29); Chloride 107 mmol/L (98-107); Estimated GFR 42; Glucose 87 mg/dL (70-105); Potassium 4.3 mmol/L (3.5-5.1); Sodium 132 mmol/L (136-145)
[2023-01-26] MEDS ORDERED: Vancomycin 1 GM in Premix Bag 1 BAG IVPB SCH (09:00)
[2023-01-26] MEDS ORDERED: Amlodipine 5 MG TAB PO SCH (09:00)
[2023-01-26] MEDS: Amoxicillin/Potassium Clav 875 MG TAB PO SCH ×2 (09:34→20:04)
[2023-01-26] MEDS: Metoprolol Tartrate 100 MG TAB PO SCH (09:34)
[2023-01-26] MEDS: Sulfameth/Trimethoprim DS 800-160mg TAB PO SCH ×2 (09:34→20:04)
[2023-01-26] MEDS: metFORMIN 500 MG TAB PO SCH ×2 (09:34→20:04)
[2023-01-26] MEDS: Insulin Glargine 30 UNITS/0.3 ML VIAL SC SCH ×2 (09:34→20:04)
[2023-01-26] MEDS: Chlorthalidone 25 MG TAB PO SCH (09:34)
[2023-01-26] MEDS: Aspirin 81 mg Enteric Coated Tablet PO SCH (09:34)
[2023-01-26] MEDS: Ondansetron PF 4 MG/2 ML Vial IVP PRN (11:16)
[2023-01-26] MEDS ORDERED: Meropenem 1 GM in Sodium Chloride 0.9% 100 ML IVPB SCH (14:00)
[2023-01-26] MEDS: Atorvastatin Calcium 40 MG TAB PO SCH (20:04)
[2023-01-27 05:52] LABS: Anion Gap 15 mmol/L (10-20); BUN (Urea Nitrogen) 34 mg/dL (8.4-25.7); Calc. Creatinine Clearance 71 mL/min (70-130); Calcium 9.1 mg/dL (7.8-10.44); Carbon Dioxide 20 mmol/L (22-29); Chloride 102 mmol/L (98-107); Estimated GFR 34; Glucose 95 mg/dL (70-105); Potassium 3.8 mmol/L (3.5-5.1); Sodium 133 mmol/L (136-145)
[2023-01-27] MEDS: Sulfameth/Trimethoprim DS 800-160mg TAB PO SCH ×2 (09:13→20:49)
[2023-01-27] MEDS: Aspirin 81 mg Enteric Coated Tablet PO SCH (09:13)
[2023-01-27] MEDS: Amoxicillin/Potassium Clav 875 MG TAB PO SCH (09:13)
[2023-01-27] MEDS: metFORMIN 500 MG TAB PO SCH ×2 (09:13→20:49)
[2023-01-27] MEDS: Metoprolol Tartrate 100 MG TAB PO SCH (09:13)
[2023-01-27] MEDS: Chlorthalidone 25 MG TAB PO SCH (09:13)
[2023-01-27] MEDS: Amlodipine 10 MG TAB PO SCH (09:13)
[2023-01-27] MEDS: Ondansetron PF 4 MG/2 ML Vial IVP PRN (09:13)
[2023-01-27] MEDS: Insulin Glargine 30 UNITS/0.3 ML VIAL SC SCH ×2 (09:14→20:49)
[2023-01-27] MEDS ORDERED: Lactated Ringer's 500 ML IV SCH (12:15)
[2023-01-27 12:50] LABS: #Eosinphils 0.4 thou/uL (0.0-0.7); #Lymphocytes 1.7 thou/uL (1.20-3.40); #Monocytes 0.8 thou/uL (0.11-0.59); #Neutrophils 5.5 thou/uL (1.40-6.50); %Basophils 0.4 % (0.0-1.0); %Eosinophils 4.5 % (0.0-10.0); %Monocytes 9.2 % (0.0-10.0); %Neutrophils 65.9 % (42.0-75.0); Hemoglobin 12.3 g/dL (14.0-18.0); Mean Corpuscular HGB CONC 33.3 g/dL (32.0-36.0); Mean Corpuscular Hemoglobin 28.7 pg (27.0-31.0); Mean Corpuscular Volume 86.1 fl (78.0-98.0); Mean Platelet Volume 6.1 fL (7.4-10.4); Platelet Count 320 10x3/uL (130-400); RBC Distribution Width 12.4 % (11.5-14.5); Red Blood Cell (RBC) Count 4.28 mill/uL (4.70-6.10); White Blood Cell (WBC) Count 8.4 10x3/uL (4.8-10.8)
[2023-01-27] MEDS: traMADol HCl 50 MG TAB PO PRN (14:41)
[2023-01-27] MEDS: metroNIDAZOLE 500 MG TAB PO SCH ×2 (14:42→20:49)
[2023-01-27] MEDS: Cefdinir 300 MG CAP PO SCH (20:49)
[2023-01-27] MEDS: Atorvastatin Calcium 40 MG TAB PO SCH (20:49)
[2023-01-28 06:13] LABS: #Eosinphils 0.4 thou/uL (0.0-0.7); #Lymphocytes 1.7 thou/uL (1.20-3.40); #Monocytes 0.7 thou/uL (0.11-0.59); %Basophils 0.2 % (0.0-1.0); %Eosinophils 5.3 % (0.0-10.0); %Lymphocytes 21.7 % (21.0-51.0); %Monocytes 9.2 % (0.0-10.0); %Neutrophils 63.7 % (42.0-75.0); Hemoglobin 11.7 g/dL (14.0-18.0); Mean Corpuscular HGB CONC 33.7 g/dL (32.0-36.0); Mean Corpuscular Hemoglobin 29.1 pg (27.0-31.0); Mean Corpuscular Volume 86.1 fl (78.0-98.0); Mean Platelet Volume 6.4 fL (7.4-10.4); Platelet Count 334 10x3/uL (130-400); RBC Distribution Width 12.3 % (11.5-14.5); Red Blood Cell (RBC) Count 4.03 mill/uL (4.70-6.10); White Blood Cell (WBC) Count 7.8 10x3/uL (4.8-10.8)
[2023-01-28 06:38] LABS: Anion Gap 13 mmol/L (10-20); BUN (Urea Nitrogen) 46 mg/dL (8.4-25.7); Calc. Creatinine Clearance 68 mL/min (70-130); Calcium 9.2 mg/dL (7.8-10.44); Carbon Dioxide 22 mmol/L (22-29); Chloride 103 mmol/L (98-107); Estimated GFR 32; Glucose 100 mg/dL (70-105); Potassium 3.9 mmol/L (3.5-5.1); Sodium 134 mmol/L (136-145)
[2023-01-28] MEDS: Ondansetron PF 4 MG/2 ML Vial IVP PRN (08:13)
[2023-01-28] MEDS: metroNIDAZOLE 500 MG TAB PO SCH (09:27)
[2023-01-28] MEDS: Cefdinir 300 MG CAP PO SCH (09:27)
[2023-01-28] MEDS: Sulfameth/Trimethoprim DS 800-160mg TAB PO SCH (09:27)
[2023-01-28] MEDS: metFORMIN 500 MG TAB PO SCH (09:27)
[2023-01-28] MEDS: Aspirin 81 mg Enteric Coated Tablet PO SCH (09:48)
[2023-01-28] MEDS: Chlorthalidone 25 MG TAB PO SCH (09:49)
[2023-01-28] MEDS: Insulin Glargine 30 UNITS/0.3 ML VIAL SC SCH ×2 (09:49→20:14)
[2023-01-28] MEDS: Amlodipine 10 MG TAB PO SCH (09:49)
[2023-01-28] MEDS: Metoprolol Tartrate 100 MG TAB PO SCH (09:49)
[2023-01-28] MEDS: Lactated Ringer's 1,000 ML IV SCH (10:32)
[2023-01-28] MEDS: Atorvastatin Calcium 40 MG TAB PO SCH (20:14)
[2023-01-29] MEDS: Lactated Ringer's 1,000 ML IV SCH (02:09)
[2023-01-29 06:49] LABS: #Eosinphils 0.4 thou/uL (0.0-0.7); #Lymphocytes 2.3 thou/uL (1.20-3.40); #Monocytes 0.7 thou/uL (0.11-0.59); #Neutrophils 4.2 thou/uL (1.40-6.50); %Basophils 0.4 % (0.0-1.0); %Eosinophils 4.9 % (0.0-10.0); %Lymphocytes 29.9 % (21.0-51.0); %Monocytes 9.3 % (0.0-10.0); %Neutrophils 55.5 % (42.0-75.0); Hemoglobin 12.2 g/dL (14.0-18.0); Mean Corpuscular HGB CONC 33.5 g/dL (32.0-36.0); Mean Corpuscular Hemoglobin 28.9 pg (27.0-31.0); Mean Corpuscular Volume 86.4 fl (78.0-98.0); Platelet Count 388 10x3/uL (130-400); RBC Distribution Width 12.2 % (11.5-14.5); Red Blood Cell (RBC) Count 4.23 mill/uL (4.70-6.10); White Blood Cell (WBC) Count 7.6 10x3/uL (4.8-10.8)
[2023-01-29 07:11] LABS: Anion Gap 13 mmol/L (10-20); BUN (Urea Nitrogen) 46 mg/dL (8.4-25.7); Calc. Creatinine Clearance 68 mL/min (70-130); Calcium 9.7 mg/dL (7.8-10.44); Carbon Dioxide 25 mmol/L (22-29); Chloride 102 mmol/L (98-107); Estimated GFR 32; Glucose 97 mg/dL (70-105); Potassium 4.6 mmol/L (3.5-5.1); Sodium 135 mmol/L (136-145)
[2023-01-29] MEDS: Insulin Glargine 30 UNITS/0.3 ML VIAL SC SCH (08:32)
[2023-01-29] MEDS: Aspirin 81 mg Enteric Coated Tablet PO SCH (08:33)
[2023-01-29] MEDS: Chlorthalidone 25 MG TAB PO SCH (08:33)
[2023-01-29] MEDS: Amlodipine 10 MG TAB PO SCH (08:33)
[2023-01-29] MEDS: Metoprolol Tartrate 100 MG TAB PO SCH (08:33)
[2023-01-29] MEDS ORDERED: HYDROcodone/Acetaminophen 5/325 mg Tablet PO PRN (09:51)
[2023-01-29] MEDS ORDERED: Linezolid 600 MG TAB PO SCH ×2 (10:15→21:00)
[2023-01-29 13:14] VITALS: BP 142/82; TEMP 97.9
== END 2023-01-29 16:36 | disposition home or self-care (01) | DRG 854 ==
LOC: ERS 20:40 → T4-A 23:50 → OBSVTOIN 01-24 06:11
PROVIDERS: ADMIT Internal Medicine; ATTEND Family Medicine
PROC: 3E03329 Introduction of Other Anti-infective into Peripheral Vein, Percutaneous Approach (ICD-10-PCS; 2023-01-23)
PROC: 0QBN0ZZ Excision of Right Metatarsal, Open Approach (ICD-10-PCS; principal; 2023-01-24)
DX: A41.9 Sepsis, unspecified organism (principal); E11.52 Type 2 diabetes mellitus with diabetic peripheral angiopathy with gangrene; M86.171 Other acute osteomyelitis, right ankle and foot; N17.9 Acute kidney failure, unspecified; E78.5 Hyperlipidemia, unspecified; E11.628 Type 2 diabetes mellitus with other skin complications; E78.00 Pure hypercholesterolemia, unspecified; I12.9 Hypertensive chronic kidney disease with stage 1 through stage 4 chronic kidney disease, or unspecified chronic kidney disease; E11.621 Type 2 diabetes mellitus with foot ulcer; L97.519 Non-pressure chronic ulcer of other part of right foot with unspecified severity; N18.9 Chronic kidney disease, unspecified; E66.01 Morbid (severe) obesity due to excess calories; Z68.36 Body mass index [BMI] 36.0-36.9, adult; Z86.73 Personal history of transient ischemic attack (TIA), and cerebral infarction without residual deficits; Z79.899 Other long term (current) drug therapy; Z79.82 Long term (current) use of aspirin; Z79.4 Long term (current) use of insulin; Z79.84 Long term (current) use of oral hypoglycemic drugs; Z89.421 Acquired absence of other right toe(s); Z98.890 Other specified postprocedural states; Z82.49 Family history of ischemic heart disease and other diseases of the circulatory system; E11.22 Type 2 diabetes mellitus with diabetic chronic kidney disease; E11.69 Type 2 diabetes mellitus with other specified complication; E11.42 Type 2 diabetes mellitus with diabetic polyneuropathy; E88.81 Metabolic syndrome and other insulin resistance
CPT/HCPCS: 36415; 36416; 80048; 80053; 81003; 81015; 82550; 83036; 83605; 83690; 85025; 86140; 87040; 87070; 87076; 87077; 87086; 87186; 87205; 96361; 96365; 96367; 97139; G0378; J0692; J1650; J1815; J2185; J2405; J2704; J2765; J3010; J3370; J3490; J7030; J7120

== ENCOUNTER 2023-06-27 08:42 | Inpatient (IN) | payer OTHER ==
[2023-06-27] MEDS ORDERED: Ondansetron PF 4 MG/2 ML Vial ONE (09:08)
[2023-06-27] MEDS ORDERED: Morphine 4 MG/ML VIAL ONE ×2 (09:08→11:24)
[2023-06-27 10:39] LABS: #Basophils 0.2 thou/uL (0.0-0.2); #Eosinphils 0.3 thou/uL (0.0-0.7); #Monocytes 0.6 thou/uL (0.11-0.59); #Neutrophils 10.3 thou/uL (1.40-6.50); %Basophils 1.1 % (0.0-1.0); %Eosinophils 1.9 % (0.0-10.0); %Lymphocytes 15.6 % (21.0-51.0); %Monocytes 4.5 % (0.0-10.0); %Neutrophils 76.2 % (42.0-75.0); Hematocrit 39.3 % (42.0-52.0); Hemoglobin 12.7 g/dL (14.0-18.0); Mean Corpuscular HGB CONC 32.3 g/dL (32.0-36.0); Mean Corpuscular Hemoglobin 25.8 pg (27.0-31.0); Mean Corpuscular Volume 79.7 fl (78.0-98.0); Mean Platelet Volume 8.9 fL (7.4-10.4); Platelet Count 347 10x3/uL (130-400); RBC Distribution Width 15.7 % (11.5-14.5); Red Blood Cell (RBC) Count 4.93 mill/uL (4.70-6.10); White Blood Cell (WBC) Count 13.5 10x3/uL (4.8-10.8)
[2023-06-27 11:04] LABS: ALT (SGPT) 33 U/L (8-55); AST (SGOT) 30 U/L (5-34); Albumin 3.9 g/dL (3.5-5.0); Alkaline Phosphatase 167 U/L (40-110); Anion Gap 14 mmol/L (10-20); BUN (Urea Nitrogen) 37 mg/dL (8.4-25.7); Bilirubin, Total 0.5 mg/dL (0.2-1.2); Calc. Creatinine Clearance 0 mL/min (70-130); Calcium 9.3 mg/dL (7.8-10.44); Carbon Dioxide 21 mmol/L (22-29); Chloride 107 mmol/L (98-107); Estimated GFR 37; Glucose 126 mg/dL (70-105); Potassium 4.5 mmol/L (3.5-5.1); Protein, Total 7.9 g/dL (6.0-8.3); Sodium 137 mmol/L (136-145)
[2023-06-27 11:08] LABS: PTT 28.5 sec (22.9-36.1); Prothrombin Time 13.3 sec (12.0-14.7)
[2023-06-27] MEDS ORDERED: CEFAZOLIN 2 GM in Sodium Chloride 0.9% 100 ML IVPB SCH (11:45)
[2023-06-27] MEDS ORDERED: Ondansetron PF 4 MG/2 ML Vial IVP PRN (13:04)
[2023-06-27] MEDS ORDERED: Ipratropium/Albuterol 3 ML NEB NEB PRN (13:04)
[2023-06-27] MEDS ORDERED: Morphine 2 MG/ML VIAL SLOW IVP PRN (13:04)
[2023-06-27] MEDS ORDERED: hydrALAZINE 20 MG/ML VIAL SLOW IVP PRN (13:04)
[2023-06-27] MEDS ORDERED: traMADol HCl 50 MG TAB PO PRN (13:06)
[2023-06-27] MEDS ORDERED: Cyclobenzaprine 10 MG TAB PO PRN (13:06)
[2023-06-27] MEDS ORDERED: Acetaminophen 500 MG TAB PO SCH ×2 (13:15→18:00)
[2023-06-27] MEDS ORDERED: Sodium Chloride 0.9% 1,000 ML IV SCH (13:15)
[2023-06-27] MEDS ORDERED: Metoprolol Tartrate 100 MG TAB PO SCH (13:45)
[2023-06-27] MEDS: Sodium Chloride 0.9% 1,000 ML IV SCH ×2 (14:44→19:51)
[2023-06-27] MEDS ORDERED: traMADol HCl 50 MG TAB PO SCH (18:00)
[2023-06-27 19:12] LABS: Bacteria/HPF None Seen HPF (None Seen); Bilirubin Negative (Negative); Blood, Urine 1+ (Negative); CAUTI Indications for Culture Dysuria,urgency,freq; Clarity Clear (Clear); Glucose, Urine (Dipstick) 30 mg/dL (Negative); Ketone, Urine Negative (Negative); Leukocyte Negative Leu/uL (Negative); Nitrite Negative (Negative); Protein, Urine (Dipstick) 30 mg/dL (Neg-Trace); Specific Gravity, Urine 1.014 (1.002-1.036); Squamous Epithelial None Seen HPF (0-3); Urobilinogen Normal mg/dL (Less than 2); WBC/HPF None Seen HPF (0-3); pH, Urine 5.5 (5.0-9.0)
[2023-06-27 19:13] LABS: Urine Culture Reflex No No
[2023-06-27] MEDS: Famotidine/PF 20 mg/2ml Vial SLOW IVP SCH (19:51)
[2023-06-27] MEDS: Acetaminophen 500 MG TAB PO SCH (19:52)
[2023-06-27] MEDS: Senokot S 8.6-50 MG TAB PO SCH (19:52)
[2023-06-27] MEDS: traMADol HCl 50 MG TAB PO SCH (19:52)
[2023-06-27] MEDS: Atorvastatin Calcium 40 MG TAB PO SCH (19:52)
[2023-06-28] MEDS: Acetaminophen 500 MG TAB PO SCH ×4 (01:41→20:19)
[2023-06-28 06:53] LABS: #Basophils 0.1 thou/uL (0.0-0.2); #Eosinphils 0.3 thou/uL (0.0-0.7); #Monocytes 0.7 thou/uL (0.11-0.59); #Neutrophils 7.6 thou/uL (1.40-6.50); %Basophils 1.2 % (0.0-1.0); %Eosinophils 3.2 % (0.0-10.0); %Lymphocytes 17.7 % (21.0-51.0); %Monocytes 6.9 % (0.0-10.0); %Neutrophils 70.6 % (42.0-75.0); Hematocrit 35.6 % (42.0-52.0); Hemoglobin 11.6 g/dL (14.0-18.0); Mean Corpuscular HGB CONC 32.6 g/dL (32.0-36.0); Mean Corpuscular Hemoglobin 26.2 pg (27.0-31.0); Mean Corpuscular Volume 80.4 fl (78.0-98.0); Mean Platelet Volume 8.9 fL (7.4-10.4); Platelet Count 302 10x3/uL (130-400); RBC Distribution Width 15.9 % (11.5-14.5); Red Blood Cell (RBC) Count 4.43 mill/uL (4.70-6.10); White Blood Cell (WBC) Count 10.8 10x3/uL (4.8-10.8)
[2023-06-28 07:04] LABS: PTT 29.9 sec (22.9-36.1); Prothrombin Time 13.9 sec (12.0-14.7)
[2023-06-28 07:15] LABS: Anion Gap 11 mmol/L (10-20); BUN (Urea Nitrogen) 33 mg/dL (8.4-25.7); Calc. Creatinine Clearance 81 mL/min (70-130); Calcium 8.8 mg/dL (7.8-10.44); Carbon Dioxide 21 mmol/L (22-29); Chloride 109 mmol/L (98-107); Estimated GFR 43; Glucose 146 mg/dL (70-105); Potassium 4.1 mmol/L (3.5-5.1); Sodium 137 mmol/L (136-145)
[2023-06-28] MEDS ORDERED: CEFAZOLIN 2 GM VIAL ONE (07:54)
[2023-06-28] MEDS ORDERED: Sodium Chloride 0.9% 100 ML ONE (07:54)
[2023-06-28] MEDS ORDERED: Dexamethasone 4 mg/ml Vial ONE (08:00)
[2023-06-28] MEDS ORDERED: Dexmedetomidine 200 MCG/2 ML VIAL ONE (08:00)
[2023-06-28] MEDS ORDERED: Bupivacaine 0.25% HCL 30 ML VIAL ONE ×2 (08:00→08:01)
[2023-06-28] MEDS ORDERED: Fentanyl 250 MCG/5 ML VIAL ONE (08:02)
[2023-06-28] MEDS ORDERED: Tranexamic Acid 1,000 MG/10 ML VIAL ONE ×2 (08:12→08:23)
[2023-06-28] MEDS ORDERED: SUGAMMADEX SODIUM 200 MG/2 ML VIAL ONE (08:27)
[2023-06-28] MEDS ORDERED: Rocuronium Bromide 10 MG/ML (10ML VIAL) ONE (08:30)
[2023-06-28] MEDS ORDERED: Metoclopramide HCl 10 MG/2 ML VIAL ONE (08:30)
[2023-06-28] MEDS ORDERED: Ondansetron PF 4 MG/2 ML Vial ONE (08:30)
[2023-06-28] MEDS ORDERED: PROPOFOL 200 MG/20 ML VIAL ONE (08:30)
[2023-06-28] MEDS ORDERED: Polyethylene Glycol 3350 17 GM Packet PO SCH (09:00)
[2023-06-28] MEDS ORDERED: Senokot S 8.6-50 MG TAB PO SCH (09:00)
[2023-06-28] MEDS: Senokot S 8.6-50 MG TAB PO SCH ×2 (09:14→20:20)
[2023-06-28] MEDS: DULoxetine 30 MG CAP PO SCH (09:15)
[2023-06-28] MEDS: Famotidine/PF 20 mg/2ml Vial SLOW IVP SCH ×2 (09:16→20:18)
[2023-06-28] MEDS: Metoprolol Tartrate 100 MG TAB PO SCH (09:16)
[2023-06-28] MEDS: Polyethylene Glycol 3350 17 GM Packet PO SCH (09:16)
[2023-06-28] MEDS: traMADol HCl 50 MG TAB PO SCH ×2 (09:16→20:20)
[2023-06-28] MEDS: Amlodipine 10 MG TAB PO SCH (09:19)
[2023-06-28] MEDS: Chlorthalidone 25 MG TAB PO SCH (09:20)
[2023-06-28] MEDS ORDERED: PROPOFOL 20 ML ONE (10:12)
[2023-06-28] MEDS ORDERED: Ondansetron HCl/PF 4 MG/2 ML Vial IVP PRN (10:38)
[2023-06-28] MEDS ORDERED: Promethazine HCl 25 MG/ML VIAL IM PRN (10:38)
[2023-06-28] MEDS ORDERED: fentaNYL 50 mcg/mL 1 mL Vial ONE ×3 (10:41→11:06)
[2023-06-28] MEDS ORDERED: Sodium Chloride 0.9% 1,000 ML IV SCH (13:45)
[2023-06-28] MEDS: CEFAZOLIN 2 GM in Sodium Chloride 0.9% 100 ML IVPB SCH ×2 (15:34→23:56)
[2023-06-28] MEDS: Sodium Chloride 0.9% 1,000 ML IV SCH (17:37)
[2023-06-28] MEDS: Atorvastatin Calcium 40 MG TAB PO SCH (20:20)
[2023-06-28] MEDS: Tamsulosin HCl 0.4 MG CAP PO SCH (20:21)
[2023-06-28] MEDS ORDERED: TETANUS, DIPHTHERIA TOX,ADULT (TDVAX) 0.5 ML VIAL IM ONE (22:39)
[2023-06-28] MEDS ORDERED: Dextrose 50% Abboject 50 ML SYRINGE SLOW IVP PRN (22:39)
[2023-06-28] MEDS ORDERED: Dextrose 5% in Water 1,000 ML IV PRN (22:39)
[2023-06-28] MEDS ORDERED: Glucagon 1 MG/ML KIT IM PRN (22:39)
[2023-06-29] MEDS: Insulin Regular 300 UNITS/3 ML VIAL SC PRN ×4 (00:05→22:05)
[2023-06-29] MEDS: Acetaminophen 500 MG TAB PO SCH ×4 (02:15→20:42)
[2023-06-29 06:31] LABS: BUN (Urea Nitrogen) 27 mg/dL (8.4-25.7); Calc. Creatinine Clearance 83 mL/min (70-130); Calcium 8.6 mg/dL (7.8-10.44); Carbon Dioxide 14 mmol/L (22-29); Chloride 106 mmol/L (98-107); Estimated GFR 44; Glucose 236 mg/dL (70-105); Potassium 4.8 mmol/L (3.5-5.1); Sodium 130 mmol/L (136-145)
[2023-06-29 06:49] LABS: Anion Gap 15 mmol/L (10-20)
[2023-06-29] MEDS: Metoprolol Tartrate 100 MG TAB PO SCH (08:00)
[2023-06-29] MEDS: Senokot S 8.6-50 MG TAB PO SCH ×2 (08:00→20:44)
[2023-06-29] MEDS: Chlorthalidone 25 MG TAB PO SCH (08:00)
[2023-06-29] MEDS: Amlodipine 10 MG TAB PO SCH (08:01)
[2023-06-29] MEDS: DULoxetine 30 MG CAP PO SCH (08:01)
[2023-06-29] MEDS: traMADol HCl 50 MG TAB PO PRN (08:02)
[2023-06-29] MEDS: traMADol HCl 50 MG TAB PO SCH ×2 (08:02→20:43)
[2023-06-29 09:06] LABS: Hematocrit 33.2 % (42.0-52.0); Hemoglobin 10.7 g/dL (14.0-18.0); Mean Corpuscular HGB CONC 32.2 g/dL (32.0-36.0); Mean Corpuscular Hemoglobin 25.6 pg (27.0-31.0); Mean Corpuscular Volume 79.4 fl (78.0-98.0); Mean Platelet Volume 8.9 fL (7.4-10.4); Platelet Count 288 10x3/uL (130-400); RBC Distribution Width 15.9 % (11.5-14.5); Red Blood Cell (RBC) Count 4.18 mill/uL (4.70-6.10); White Blood Cell (WBC) Count 13.1 10x3/uL (4.8-10.8)
[2023-06-29 09:11] LABS: Delete Auto Diff?? YES; Manual Diff?? YES
[2023-06-29] MEDS: Polyethylene Glycol 3350 17 GM Packet PO SCH (09:32)
[2023-06-29] MEDS: Famotidine/PF 20 mg/2ml Vial SLOW IVP SCH (09:33)
[2023-06-29 10:02] LABS: Band 2 % (5-11); Eosinophils 1 % (0-10); Lymphocytes 10 % (21-51); Monocytes 9 % (0-10); Neutrophil 76 % (42-75); Reactive Lymphocytes 2 % (0-10)
[2023-06-29 10:03] LABS: Platelet Adequacy Comment Appears Adequate; RBC Morph Comment Within Normal Limits
[2023-06-29] MEDS ORDERED: Sodium Chloride 0.9% 1,000 ML IV SCH (13:45)
[2023-06-29] MEDS: Tamsulosin HCl 0.4 MG CAP PO SCH (20:42)
[2023-06-29] MEDS: Atorvastatin Calcium 40 MG TAB PO SCH (20:43)
[2023-06-29] MEDS: Heparin 5,000 UNITS/ML VIAL SC SCH (20:44)
[2023-06-30] MEDS: Acetaminophen 500 MG TAB PO SCH ×4 (02:58→20:51)
[2023-06-30 05:50] LABS: #Basophils 0.1 thou/uL (0.0-0.2); #Eosinphils 0.2 thou/uL (0.0-0.7); %Eosinophils 1.5 % (0.0-10.0); %Lymphocytes 21.6 % (21.0-51.0); %Monocytes 9.4 % (0.0-10.0); %Neutrophils 66.1 % (42.0-75.0); Hematocrit 29.1 % (42.0-52.0); Hemoglobin 9.4 g/dL (14.0-18.0); Mean Corpuscular HGB CONC 32.3 g/dL (32.0-36.0); Mean Corpuscular Hemoglobin 25.7 pg (27.0-31.0); Mean Corpuscular Volume 79.5 fl (78.0-98.0); Platelet Count 251 10x3/uL (130-400); RBC Distribution Width 16.1 % (11.5-14.5); Red Blood Cell (RBC) Count 3.66 mill/uL (4.70-6.10); White Blood Cell (WBC) Count 10.5 10x3/uL (4.8-10.8)
[2023-06-30] MEDS: Insulin Regular 300 UNITS/3 ML VIAL SC PRN ×4 (06:46→23:06)
[2023-06-30] MEDS: Polyethylene Glycol 3350 17 GM Packet PO SCH (08:10)
[2023-06-30] MEDS: Senokot S 8.6-50 MG TAB PO SCH ×2 (08:10→20:52)
[2023-06-30] MEDS: Metoprolol Tartrate 100 MG TAB PO SCH (08:10)
[2023-06-30] MEDS: traMADol HCl 50 MG TAB PO SCH ×2 (08:11→20:53)
[2023-06-30] MEDS: Amlodipine 10 MG TAB PO SCH (08:11)
[2023-06-30] MEDS: Chlorthalidone 25 MG TAB PO SCH (08:11)
[2023-06-30] MEDS: Heparin 5,000 UNITS/ML VIAL SC SCH ×2 (08:12→20:53)
[2023-06-30] MEDS: DULoxetine 30 MG CAP PO SCH (08:12)
[2023-06-30] MEDS: traMADol HCl 50 MG TAB PO PRN (13:51)
[2023-06-30] MEDS: Atorvastatin Calcium 40 MG TAB PO SCH (20:52)
[2023-06-30] MEDS: Tamsulosin HCl 0.4 MG CAP PO SCH (20:53)
[2023-07-01] MEDS: Acetaminophen 500 MG TAB PO SCH ×3 (02:21→13:48)
[2023-07-01 06:04] LABS: #Basophils 0.1 thou/uL (0.0-0.2); #Eosinphils 0.3 thou/uL (0.0-0.7); #Monocytes 0.9 thou/uL (0.11-0.59); #Neutrophils 5.8 thou/uL (1.40-6.50); %Basophils 0.9 % (0.0-1.0); %Lymphocytes 23.3 % (21.0-51.0); %Monocytes 9.7 % (0.0-10.0); %Neutrophils 62.7 % (42.0-75.0); Hematocrit 28.4 % (42.0-52.0); Hemoglobin 9.2 g/dL (14.0-18.0); Mean Corpuscular HGB CONC 32.4 g/dL (32.0-36.0); Mean Corpuscular Hemoglobin 25.7 pg (27.0-31.0); Mean Corpuscular Volume 79.3 fl (78.0-98.0); Mean Platelet Volume 8.9 fL (7.4-10.4); Platelet Count 265 10x3/uL (130-400); Red Blood Cell (RBC) Count 3.58 mill/uL (4.70-6.10); White Blood Cell (WBC) Count 9.3 10x3/uL (4.8-10.8)
[2023-07-01 06:32] LABS: ALT (SGPT) Less than 7 U/L (8-55); AST (SGOT) 13 U/L (5-34); Albumin 2.9 g/dL (3.5-5.0); Alkaline Phosphatase 101 U/L (40-110); Anion Gap 11 mmol/L (10-20); BUN (Urea Nitrogen) 29 mg/dL (8.4-25.7); Bilirubin, Total 0.3 mg/dL (0.2-1.2); Calc. Creatinine Clearance 85 mL/min (70-130); Calcium 8.8 mg/dL (7.8-10.44); Carbon Dioxide 25 mmol/L (22-29); Chloride 101 mmol/L (98-107); Estimated GFR 46; Globulin 3.4 g/dL (2.4-3.5); Glucose 176 mg/dL (70-105); Protein, Total 6.3 g/dL (6.0-8.3); Sodium 133 mmol/L (136-145)
[2023-07-01] MEDS: Insulin Regular 300 UNITS/3 ML VIAL SC PRN ×2 (06:32→13:47)
[2023-07-01] MEDS: Polyethylene Glycol 3350 17 GM Packet PO SCH (08:01)
[2023-07-01] MEDS: traMADol HCl 50 MG TAB PO SCH (08:01)
[2023-07-01] MEDS: DULoxetine 30 MG CAP PO SCH (08:02)
[2023-07-01] MEDS: Amlodipine 10 MG TAB PO SCH (08:02)
[2023-07-01] MEDS: Senokot S 8.6-50 MG TAB PO SCH (08:03)
[2023-07-01] MEDS: Heparin 5,000 UNITS/ML VIAL SC SCH (08:04)
[2023-07-01] MEDS: Metoprolol Tartrate 100 MG TAB PO SCH (08:04)
[2023-07-01] MEDS: Chlorthalidone 25 MG TAB PO SCH (08:04)
[2023-07-01] MEDS ORDERED: Scopolamine 1.5 mg/72 hour Patch TD SCH (09:00)
[2023-07-01 15:41] VITALS: BP 137/78; TEMP 98.1
== END 2023-07-01 17:15 | DRG 522 ==
LOC: ERS 08:42 → ERHOLD 11:21 → OBSVTOIN 13:04 → SURG A 13:41
PROVIDERS: ADMIT Surgery; ATTEND Surgery
PROC: 0SR901A Replacement of Right Hip Joint with Metal Synthetic Substitute, Uncemented, Open Approach (ICD-10-PCS; principal; 2023-06-28)
DX: S72.031A Displaced midcervical fracture of right femur, initial encounter for closed fracture (principal); M86.8X7 Other osteomyelitis, ankle and foot; N17.9 Acute kidney failure, unspecified; E78.00 Pure hypercholesterolemia, unspecified; R33.9 Retention of urine, unspecified; V78.6XXA Passenger on bus injured in noncollision transport accident in traffic accident, initial encounter; Z86.73 Personal history of transient ischemic attack (TIA), and cerebral infarction without residual deficits; Z98.890 Other specified postprocedural states; Z89.431 Acquired absence of right foot; I12.9 Hypertensive chronic kidney disease with stage 1 through stage 4 chronic kidney disease, or unspecified chronic kidney disease; E11.22 Type 2 diabetes mellitus with diabetic chronic kidney disease; N18.9 Chronic kidney disease, unspecified
CPT/HCPCS: 36415; 36416; 71045; 72170; 80048; 80053; 81001; 85025; 85610; 85730; 86850; 86900; 86901; 93005; 96374; 96375; 96376; 97139; C1776; J1100; J1644; J1815; J2270; J2272; J2405; J2704; J2765; J3010; J3490; J7050; S0020; S0028

== ENCOUNTER 2023-09-22 08:06 | Outpatient (CLI) | payer OTHER | END 2023-09-22 08:07 | disposition home or self-care (01) | LOC: BICRAD 08:06 | PROVIDERS: ATTEND Orthopaedic Surgery | DX: Z47.1 Aftercare following joint replacement surgery (principal); Z96.641 Presence of right artificial hip joint ==

== ENCOUNTER 2023-10-27 14:33 | Inpatient (IN) | payer OTHER ==
[2023-10-27 15:17] LABS: #Monocytes 0.7 thou/uL (0.11-0.59); #Neutrophils 17.5 thou/uL (1.40-6.50); %Basophils 0.2 % (0.0-1.0); %Lymphocytes 1.7 % (21.0-51.0); %Monocytes 3.6 % (0.0-10.0); %Neutrophils 93.9 % (42.0-75.0); Hematocrit 35.1 % (42.0-52.0); Hemoglobin 11.9 g/dL (14.0-18.0); Mean Corpuscular HGB CONC 33.9 g/dL (32.0-36.0); Mean Corpuscular Volume 79.6 fl (78.0-98.0); Mean Platelet Volume 8.9 fL (7.4-10.4); Platelet Count 223 10x3/uL (130-400); RBC Distribution Width 14.8 % (11.5-14.5); Red Blood Cell (RBC) Count 4.41 mill/uL (4.70-6.10); White Blood Cell (WBC) Count 18.7 10x3/uL (4.8-10.8)
[2023-10-27 15:35] LABS: ALT (SGPT) 11 U/L (8-55); AST (SGOT) 15 U/L (5-34); Albumin 3.4 g/dL (3.5-5.0); Alkaline Phosphatase 112 U/L (40-110); Anion Gap 15 mmol/L (10-20); BUN (Urea Nitrogen) 24 mg/dL (8.4-25.7); Bilirubin, Total 1.1 mg/dL (0.2-1.2); Calc. Creatinine Clearance 0 mL/min (70-130); Calcium 8.5 mg/dL (7.8-10.44); Carbon Dioxide 23 mmol/L (22-29); Chloride 95 mmol/L (98-107); Estimated GFR 30; Globulin 3.4 g/dL (2.4-3.5); Glucose 200 mg/dL (70-105); Potassium 3.6 mmol/L (3.5-5.1); Protein, Total 6.8 g/dL (6.0-8.3); Sodium 129 mmol/L (136-145)
[2023-10-27] MEDS ORDERED: Vancomycin 1 GM/200 ML (FROZEN) BAG ONE (15:58)
[2023-10-27] MEDS ORDERED: Vancomycin (BATCH) 1.5 GM in Premix 1 BAG IVPB SCH (16:00)
[2023-10-27] MEDS ORDERED: Cefepime 2 GM VIAL ONE (16:00)
[2023-10-27] MEDS ORDERED: Acetaminophen 650 MG/20.3 ML UDCUP ONE (16:00)
[2023-10-27] MEDS ORDERED: Sodium Chloride 0.9% 100 ML ONE (16:01)
[2023-10-27] MEDS ORDERED: Ondansetron PF 4 MG/2 ML Vial IVP PRN (17:39)
[2023-10-27] MEDS ORDERED: Acetaminophen 650 MG Suppository PR PRN (17:39)
[2023-10-27] MEDS ORDERED: Dextrose 50% Abboject 50 ML SYRINGE SLOW IVP PRN (17:39)
[2023-10-27] MEDS ORDERED: Ondansetron ODT 4 MG TAB PO PRN (17:39)
[2023-10-27] MEDS ORDERED: Calcium Carbonate 500 MG ChewTAB PO PRN (17:39)
[2023-10-27] MEDS ORDERED: Glucagon 1 MG/ML KIT IM PRN (17:39)
[2023-10-27] MEDS ORDERED: Dextrose 5% in Water 1,000 ML IV PRN (17:39)
[2023-10-27] MEDS ORDERED: Morphine 2 MG/ML VIAL SLOW IVP PRN (18:48)
[2023-10-27 19:02] LABS: Lactic Acid 1.4 mmol/L (0.5-2.2)
[2023-10-27] MEDS: Atorvastatin Calcium 40 MG TAB PO SCH (20:23)
[2023-10-27] MEDS: Metoprolol Tartrate 50 MG TAB PO SCH (20:23)
[2023-10-27] MEDS: Heparin 5,000 UNITS/ML VIAL SC SCH (20:23)
[2023-10-27] MEDS: Insulin Glargine 30 UNITS/0.3 ML VIAL SC SCH (20:23)
[2023-10-27] MEDS: Acetaminophen 325 MG TAB PO PRN (23:14)
[2023-10-28 00:02] VITALS: BMI 36.4
[2023-10-28] MEDS: Cefepime 2 GM in Sodium Chloride 0.9% 100 ML IVPB SCH ×2 (04:14→15:58)
[2023-10-28] MEDS: HumaLOG 300 UNITS/3 ML VIAL SC PRN ×3 (06:04→21:34)
[2023-10-28] MEDS: Acetaminophen 325 MG TAB PO PRN ×3 (06:05→21:33)
[2023-10-28 07:28] LABS: #Basophils 0.1 thou/uL (0.0-0.2); #Monocytes 0.6 thou/uL (0.11-0.59); #Neutrophils 14.6 thou/uL (1.40-6.50); %Basophils 0.3 % (0.0-1.0); %Lymphocytes 3.8 % (21.0-51.0); %Monocytes 3.6 % (0.0-10.0); %Neutrophils 91.6 % (42.0-75.0); Hematocrit 32.2 % (42.0-52.0); Hemoglobin 10.8 g/dL (14.0-18.0); Mean Corpuscular HGB CONC 33.5 g/dL (32.0-36.0); Mean Corpuscular Hemoglobin 26.7 pg (27.0-31.0); Mean Corpuscular Volume 79.5 fl (78.0-98.0); Mean Platelet Volume 8.8 fL (7.4-10.4); Platelet Count 185 10x3/uL (130-400); RBC Distribution Width 14.9 % (11.5-14.5); Red Blood Cell (RBC) Count 4.05 mill/uL (4.70-6.10); White Blood Cell (WBC) Count 15.9 10x3/uL (4.8-10.8)
[2023-10-28 07:46] LABS: Anion Gap 13 mmol/L (10-20); BUN (Urea Nitrogen) 27 mg/dL (8.4-25.7); Calc. Creatinine Clearance 70 mL/min (70-130); Carbon Dioxide 21 mmol/L (22-29); Chloride 97 mmol/L (98-107); Estimated GFR 33; Glucose 154 mg/dL (70-105); Potassium 3.4 mmol/L (3.5-5.1); Sodium 128 mmol/L (136-145)
[2023-10-28] MEDS: Heparin 5,000 UNITS/ML VIAL SC SCH ×3 (08:05→21:34)
[2023-10-28] MEDS: Losartan 25 MG TAB PO SCH (08:05)
[2023-10-28] MEDS: Insulin Glargine 30 UNITS/0.3 ML VIAL SC SCH ×2 (08:05→21:34)
[2023-10-28] MEDS: Amlodipine 10 MG TAB PO SCH (08:05)
[2023-10-28] MEDS: Metoprolol Tartrate 50 MG TAB PO SCH ×2 (08:05→21:33)
[2023-10-28] MEDS: DULoxetine 30 MG CAP PO SCH (08:05)
[2023-10-28] MEDS: Sodium Chloride 0.9% 1,000 ML IV SCH ×3 (08:34→21:33)
[2023-10-28] MEDS ORDERED: Bupivacaine PF 0.5% 30 ML VIAL ONE (09:19)
[2023-10-28] MEDS ORDERED: Lidocaine 2% PF 5 ML VIAL ONE (09:50)
[2023-10-28] MEDS ORDERED: PROPOFOL 20 ML ONE (09:50)
[2023-10-28] MEDS ORDERED: PROPOFOL 200 MG/20 ML VIAL ONE (09:52)
[2023-10-28] MEDS ORDERED: Ondansetron PF 4 MG/2 ML Vial ONE ×2 (09:52→09:57)
[2023-10-28] MEDS ORDERED: PHENYLEPHRINE-NS 100 MCG/ML 10 ML SYRINGE ONE ×2 (09:52→10:02)
[2023-10-28] MEDS ORDERED: Lidocaine 1% PF 5 ML VIAL ONE (09:52)
[2023-10-28] MEDS ORDERED: fentaNYL 50 mcg/mL 1 mL Vial ONE (09:57)
[2023-10-28] MEDS ORDERED: Ondansetron PF 4 MG/2 ML Vial IVP PRN (10:34)
[2023-10-28] MEDS ORDERED: traMADol HCl 50 MG TAB PO PRN (10:34)
[2023-10-28] MEDS ORDERED: Promethazine HCl 25 MG/ML VIAL IM PRN ×2 (10:34→10:48)
[2023-10-28] MEDS ORDERED: HYDROcodone/Acetaminophen 5/325 mg Tablet PO PRN (10:34)
[2023-10-28] MEDS ORDERED: Ondansetron HCl/PF 4 MG/2 ML Vial IVP PRN (10:48)
[2023-10-28] MEDS ORDERED: Clindamycin (PEDI) 900 MG in Syringe 0 ML IVPB SCH (14:00)
[2023-10-28] MEDS: Clindamycin/D5W 900 MG in Premix 1 BAG IVPB SCH ×2 (14:51→21:36)
[2023-10-28] MEDS: Vancomycin (BATCH) 1.5 GM in Premix 1 BAG IVPB SCH (16:50)
[2023-10-28] MEDS: Atorvastatin Calcium 40 MG TAB PO SCH (21:33)
[2023-10-29] MEDS: Sodium Chloride 0.9% 1,000 ML IV SCH ×2 (03:17→04:38)
[2023-10-29] MEDS: Cefepime 2 GM in Sodium Chloride 0.9% 100 ML IVPB SCH ×2 (04:33→15:49)
[2023-10-29] MEDS: Acetaminophen 325 MG TAB PO PRN (04:37)
[2023-10-29] MEDS: Clindamycin/D5W 900 MG in Premix 1 BAG IVPB SCH ×3 (06:05→23:21)
[2023-10-29 06:37] LABS: Hematocrit 29.8 % (42.0-52.0); Mean Corpuscular HGB CONC 33.6 g/dL (32.0-36.0); Mean Corpuscular Hemoglobin 26.7 pg (27.0-31.0); Mean Corpuscular Volume 79.7 fl (78.0-98.0); Mean Platelet Volume 9.5 fL (7.4-10.4); Platelet Count 171 10x3/uL (130-400); RBC Distribution Width 15.1 % (11.5-14.5); Red Blood Cell (RBC) Count 3.74 mill/uL (4.70-6.10); White Blood Cell (WBC) Count 10.2 10x3/uL (4.8-10.8)
[2023-10-29 06:41] LABS: Delete Auto Diff?? YES; Manual Diff?? YES
[2023-10-29 06:58] LABS: Anion Gap 11 mmol/L (10-20); BUN (Urea Nitrogen) 33 mg/dL (8.4-25.7); Calc. Creatinine Clearance 69 mL/min (70-130); Calcium 7.5 mg/dL (7.8-10.44); Carbon Dioxide 20 mmol/L (22-29); Chloride 100 mmol/L (98-107); Estimated GFR 32; Glucose 138 mg/dL (70-105); Potassium 3.4 mmol/L (3.5-5.1); Sodium 128 mmol/L (136-145)
[2023-10-29 08:32] LABS: Band 13 % (5-11); Lymphocytes 11 % (21-51); Monocytes 2 % (0-10); Neutrophil 73 % (42-75); Platelet Adequacy Comment Platelets Normal; Polychromasia SLIGHT = 2-3 cells (100X) (0-2/hpf); Reactive Lymphocytes 1 % (0-10)
[2023-10-29] MEDS: Insulin Glargine 30 UNITS/0.3 ML VIAL SC SCH ×2 (09:00→21:40)
[2023-10-29] MEDS: Metoprolol Tartrate 50 MG TAB PO SCH ×2 (09:00→21:40)
[2023-10-29] MEDS: Losartan 25 MG TAB PO SCH (09:00)
[2023-10-29] MEDS: Amlodipine 10 MG TAB PO SCH (09:00)
[2023-10-29] MEDS: DULoxetine 30 MG CAP PO SCH (09:00)
[2023-10-29] MEDS: HumaLOG 300 UNITS/3 ML VIAL SC PRN (12:00)
[2023-10-29] MEDS: Heparin 5,000 UNITS/ML VIAL SC SCH ×3 (12:22→21:40)
[2023-10-29] MEDS: Vancomycin (BATCH) 1.5 GM in Premix 1 BAG IVPB SCH (17:10)
[2023-10-29] MEDS ORDERED: cefTRIAXone Sodium 2,000 MG in Syringe 0 ML IVPB SCH (21:00)
[2023-10-29] MEDS ORDERED: cefTRIAXone\\ROCEPHIN 2 GM in Sodium Chloride 0.9% 100 ML IVPB SCH (21:30)
[2023-10-29] MEDS: Atorvastatin Calcium 40 MG TAB PO SCH (21:40)
[2023-10-30 04:27] LABS: #Eosinphils 0.1 thou/uL (0.0-0.7); #Monocytes 0.8 thou/uL (0.11-0.59); %Basophils 0.4 % (0.0-1.0); %Eosinophils 0.9 % (0.0-10.0); %Lymphocytes 8.5 % (21.0-51.0); %Monocytes 8.5 % (0.0-10.0); %Neutrophils 81.2 % (42.0-75.0); Hemoglobin 10.2 g/dL (14.0-18.0); Mean Corpuscular HGB CONC 32.9 g/dL (32.0-36.0); Mean Corpuscular Hemoglobin 26.1 pg (27.0-31.0); Mean Corpuscular Volume 79.3 fl (78.0-98.0); Mean Platelet Volume 9.1 fL (7.4-10.4); Platelet Count 214 10x3/uL (130-400); RBC Distribution Width 15.3 % (11.5-14.5); Red Blood Cell (RBC) Count 3.91 mill/uL (4.70-6.10); White Blood Cell (WBC) Count 9.8 10x3/uL (4.8-10.8)
[2023-10-30 04:51] LABS: Anion Gap 13 mmol/L (10-20); BUN (Urea Nitrogen) 38 mg/dL (8.4-25.7); Calc. Creatinine Clearance 73 mL/min (70-130); Calcium 8.2 mg/dL (7.8-10.44); Carbon Dioxide 22 mmol/L (22-29); Chloride 98 mmol/L (98-107); Estimated GFR 35; Glucose 153 mg/dL (70-105); Potassium 3.6 mmol/L (3.5-5.1); Sodium 129 mmol/L (136-145)
[2023-10-30] MEDS: Clindamycin/D5W 900 MG in Premix 1 BAG IVPB SCH (06:28)
[2023-10-30] MEDS: Amlodipine 10 MG TAB PO SCH (08:24)
[2023-10-30] MEDS: Metoprolol Tartrate 50 MG TAB PO SCH ×2 (08:25→21:13)
[2023-10-30] MEDS: Insulin Glargine 30 UNITS/0.3 ML VIAL SC SCH ×2 (08:25→21:13)
[2023-10-30] MEDS: Losartan 25 MG TAB PO SCH (08:25)
[2023-10-30] MEDS: DULoxetine 30 MG CAP PO SCH (08:25)
[2023-10-30] MEDS: Heparin 5,000 UNITS/ML VIAL SC SCH ×3 (08:26→21:14)
[2023-10-30] MEDS: Morphine 4 MG/ML VIAL SLOW IVP PRN (08:57)
[2023-10-30] MEDS ORDERED: Loperamide HCl 2 MG CAP PO PRN (18:01)
[2023-10-30] MEDS: Atorvastatin Calcium 40 MG TAB PO SCH (21:13)
[2023-10-30] MEDS: cefTRIAXone\\ROCEPHIN 2 GM in Sodium Chloride 0.9% 100 ML IVPB SCH (21:13)
[2023-10-31 07:35] LABS: #Eosinphils 0.2 thou/uL (0.0-0.7); #Monocytes 0.8 thou/uL (0.11-0.59); #Neutrophils 5.3 thou/uL (1.40-6.50); %Basophils 0.5 % (0.0-1.0); %Eosinophils 2.8 % (0.0-10.0); %Lymphocytes 18.6 % (21.0-51.0); %Monocytes 10.2 % (0.0-10.0); %Neutrophils 67.1 % (42.0-75.0); Hematocrit 30.6 % (42.0-52.0); Hemoglobin 10.1 g/dL (14.0-18.0); Mean Corpuscular Volume 78.7 fl (78.0-98.0); Mean Platelet Volume 8.9 fL (7.4-10.4); Platelet Count 251 10x3/uL (130-400); RBC Distribution Width 15.4 % (11.5-14.5); Red Blood Cell (RBC) Count 3.89 mill/uL (4.70-6.10); White Blood Cell (WBC) Count 7.9 10x3/uL (4.8-10.8)
[2023-10-31 08:09] LABS: Anion Gap 11 mmol/L (10-20); BUN (Urea Nitrogen) 33 mg/dL (8.4-25.7); Calc. Creatinine Clearance 82 mL/min (70-130); Calcium 8.3 mg/dL (7.8-10.44); Carbon Dioxide 23 mmol/L (22-29); Chloride 102 mmol/L (98-107); Estimated GFR 40; Glucose 112 mg/dL (70-105); Potassium 3.6 mmol/L (3.5-5.1); Sodium 132 mmol/L (136-145)
[2023-10-31] MEDS: Amlodipine 10 MG TAB PO SCH (08:40)
[2023-10-31] MEDS: DULoxetine 30 MG CAP PO SCH (08:40)
[2023-10-31] MEDS: Metoprolol Tartrate 50 MG TAB PO SCH ×2 (08:40→20:25)
[2023-10-31] MEDS: Losartan 25 MG TAB PO SCH (08:41)
[2023-10-31] MEDS: Insulin Glargine 30 UNITS/0.3 ML VIAL SC SCH ×2 (08:41→20:25)
[2023-10-31] MEDS: Heparin 5,000 UNITS/ML VIAL SC SCH ×3 (08:41→20:25)
[2023-10-31] MEDS: Atorvastatin Calcium 40 MG TAB PO SCH (20:25)
[2023-10-31] MEDS: cefTRIAXone\\ROCEPHIN 2 GM in Sodium Chloride 0.9% 100 ML IVPB SCH (20:25)
[2023-11-01] MEDS: Insulin Glargine 30 UNITS/0.3 ML VIAL SC SCH ×2 (09:23→20:09)
[2023-11-01] MEDS: Amlodipine 10 MG TAB PO SCH (09:23)
[2023-11-01] MEDS: Losartan 25 MG TAB PO SCH (09:23)
[2023-11-01] MEDS: Metoprolol Tartrate 50 MG TAB PO SCH ×2 (09:23→20:09)
[2023-11-01] MEDS: DULoxetine 30 MG CAP PO SCH (09:23)
[2023-11-01] MEDS: Heparin 5,000 UNITS/ML VIAL SC SCH ×3 (09:23→20:09)
[2023-11-01] MEDS: Morphine 4 MG/ML VIAL SLOW IVP PRN (10:20)
[2023-11-01 13:08] LABS: #Basophils 0.1 thou/uL (0.0-0.2); #Eosinphils 0.3 thou/uL (0.0-0.7); #Neutrophils 5.2 thou/uL (1.40-6.50); %Basophils 0.7 % (0.0-1.0); %Lymphocytes 25.2 % (21.0-51.0); %Monocytes 11.4 % (0.0-10.0); %Neutrophils 57.6 % (42.0-75.0); Hematocrit 33.2 % (42.0-52.0); Hemoglobin 10.7 g/dL (14.0-18.0); Mean Corpuscular HGB CONC 32.2 g/dL (32.0-36.0); Mean Corpuscular Hemoglobin 25.8 pg (27.0-31.0); Mean Corpuscular Volume 80.2 fl (78.0-98.0); Mean Platelet Volume 8.8 fL (7.4-10.4); Platelet Count 352 10x3/uL (130-400); RBC Distribution Width 15.4 % (11.5-14.5); Red Blood Cell (RBC) Count 4.14 mill/uL (4.70-6.10)
[2023-11-01 13:25] LABS: Anion Gap 10 mmol/L (10-20); BUN (Urea Nitrogen) 29 mg/dL (8.4-25.7); Calc. Creatinine Clearance 98 mL/min (70-130); Calcium 8.3 mg/dL (7.8-10.44); Carbon Dioxide 26 mmol/L (22-29); Chloride 102 mmol/L (98-107); Estimated GFR 50; Glucose 127 mg/dL (70-105); Sodium 134 mmol/L (136-145)
[2023-11-01] MEDS: Atorvastatin Calcium 40 MG TAB PO SCH (20:09)
[2023-11-01] MEDS: cefTRIAXone\\ROCEPHIN 2 GM in Sodium Chloride 0.9% 100 ML IVPB SCH (20:09)
[2023-11-01] MEDS ORDERED: diphenhydrAMINE 25 MG CAP PO SCH (23:45)
[2023-11-02] MEDS ORDERED: hydrOXYzine 25 MG TAB PO SCH ×2 (06:00→20:15)
[2023-11-02] MEDS ORDERED: Loratadine 10 MG TAB PO SCH (09:00)
[2023-11-02] MEDS ORDERED: Cetirizine HCl 10 MG TAB PO SCH (09:00)
[2023-11-02 09:33] LABS: #Basophils 0.1 thou/uL (0.0-0.2); #Eosinphils 0.4 thou/uL (0.0-0.7); #Monocytes 0.8 thou/uL (0.11-0.59); #Neutrophils 5.2 thou/uL (1.40-6.50); %Basophils 0.8 % (0.0-1.0); %Lymphocytes 25.9 % (21.0-51.0); %Monocytes 9.1 % (0.0-10.0); %Neutrophils 55.5 % (42.0-75.0); Hematocrit 33.2 % (42.0-52.0); Hemoglobin 10.8 g/dL (14.0-18.0); Mean Corpuscular HGB CONC 32.5 g/dL (32.0-36.0); Mean Corpuscular Hemoglobin 26.1 pg (27.0-31.0); Mean Corpuscular Volume 80.2 fl (78.0-98.0); Mean Platelet Volume 8.9 fL (7.4-10.4); Platelet Count 416 10x3/uL (130-400); RBC Distribution Width 15.4 % (11.5-14.5); Red Blood Cell (RBC) Count 4.14 mill/uL (4.70-6.10); White Blood Cell (WBC) Count 9.3 10x3/uL (4.8-10.8)
[2023-11-02] MEDS: Losartan 25 MG TAB PO SCH (09:40)
[2023-11-02] MEDS: DULoxetine 30 MG CAP PO SCH (09:40)
[2023-11-02] MEDS: Amlodipine 10 MG TAB PO SCH (09:40)
[2023-11-02] MEDS: Heparin 5,000 UNITS/ML VIAL SC SCH ×3 (09:41→21:01)
[2023-11-02] MEDS: Insulin Glargine 30 UNITS/0.3 ML VIAL SC SCH ×2 (09:41→20:58)
[2023-11-02] MEDS: Metoprolol Tartrate 50 MG TAB PO SCH ×2 (09:41→20:57)
[2023-11-02] MEDS: DAPTOmycin 800 MG in Sodium Chloride 0.9% 50 ML IVPB SCH (14:59)
[2023-11-02 15:21] LABS: Anion Gap 13 mmol/L (10-20); BUN (Urea Nitrogen) 26 mg/dL (8.4-25.7); Calc. Creatinine Clearance 108 mL/min (70-130); Calcium 8.5 mg/dL (7.8-10.44); Carbon Dioxide 24 mmol/L (22-29); Chloride 104 mmol/L (98-107); Estimated GFR 56; Glucose 67 mg/dL (70-105); Potassium 3.8 mmol/L (3.5-5.1); Sodium 137 mmol/L (136-145)
[2023-11-02] MEDS: Atorvastatin Calcium 40 MG TAB PO SCH (20:57)
[2023-11-02] MEDS: HumaLOG 300 UNITS/3 ML VIAL SC PRN (21:01)
[2023-11-03] MEDS ORDERED: diphenhydrAMINE 25 MG CAP PO SCH ×2 (01:15→21:15)
[2023-11-03 07:55] LABS: #Basophils 0.1 thou/uL (0.0-0.2); #Eosinphils 0.4 thou/uL (0.0-0.7); #Neutrophils 5.5 thou/uL (1.40-6.50); %Basophils 0.6 % (0.0-1.0); %Eosinophils 3.7 % (0.0-10.0); %Lymphocytes 31.5 % (21.0-51.0); %Monocytes 9.2 % (0.0-10.0); %Neutrophils 51.4 % (42.0-75.0); Hemoglobin 10.8 g/dL (14.0-18.0); Mean Corpuscular HGB CONC 32.7 g/dL (32.0-36.0); Mean Corpuscular Hemoglobin 26.9 pg (27.0-31.0); Mean Corpuscular Volume 82.1 fl (78.0-98.0); Mean Platelet Volume 8.4 fL (7.4-10.4); Platelet Count 460 10x3/uL (130-400); RBC Distribution Width 15.4 % (11.5-14.5); Red Blood Cell (RBC) Count 4.02 mill/uL (4.70-6.10); White Blood Cell (WBC) Count 10.6 10x3/uL (4.8-10.8)
[2023-11-03 08:13] LABS: Anion Gap 14 mmol/L (10-20); BUN (Urea Nitrogen) 25 mg/dL (8.4-25.7); CK (CPK) 36 U/L (30-200); Calc. Creatinine Clearance 111 mL/min (70-130); Calcium 8.1 mg/dL (7.8-10.44); Carbon Dioxide 22 mmol/L (22-29); Chloride 104 mmol/L (98-107); Estimated GFR 58; Glucose 95 mg/dL (70-105); Sodium 136 mmol/L (136-145)
[2023-11-03] MEDS: Loratadine 10 MG TAB PO SCH (10:09)
[2023-11-03] MEDS: DULoxetine 30 MG CAP PO SCH (10:09)
[2023-11-03] MEDS: Amlodipine 10 MG TAB PO SCH (10:09)
[2023-11-03] MEDS: Metoprolol Tartrate 50 MG TAB PO SCH ×2 (10:10→21:14)
[2023-11-03] MEDS: Losartan 25 MG TAB PO SCH (10:10)
[2023-11-03] MEDS: Heparin 5,000 UNITS/ML VIAL SC SCH ×3 (10:10→21:15)
[2023-11-03] MEDS: Insulin Glargine 30 UNITS/0.3 ML VIAL SC SCH ×2 (10:10→21:16)
[2023-11-03] MEDS ORDERED: Hydrochlorothiazide 25 MG TAB PO SCH ×2 (10:30→15:00)
[2023-11-03] MEDS: DAPTOmycin 800 MG in Sodium Chloride 0.9% 50 ML IVPB SCH (15:15)
[2023-11-03] MEDS: Atorvastatin Calcium 40 MG TAB PO SCH (21:14)
[2023-11-04] MEDS: DULoxetine 30 MG CAP PO SCH (08:18)
[2023-11-04] MEDS: Loratadine 10 MG TAB PO SCH (08:18)
[2023-11-04] MEDS: Losartan 25 MG TAB PO SCH (08:18)
[2023-11-04] MEDS: Metoprolol Tartrate 50 MG TAB PO SCH ×2 (08:18→20:59)
[2023-11-04] MEDS: Amlodipine 10 MG TAB PO SCH (08:19)
[2023-11-04] MEDS: Insulin Glargine 30 UNITS/0.3 ML VIAL SC SCH ×2 (08:19→20:59)
[2023-11-04] MEDS: Heparin 5,000 UNITS/ML VIAL SC SCH ×3 (08:19→20:59)
[2023-11-04] MEDS: Hydrochlorothiazide 25 MG TAB PO SCH (08:19)
[2023-11-04] MEDS ORDERED: Losartan 25 MG TAB PO SCH ×2 (08:44→08:45)
[2023-11-04] MEDS: Morphine 4 MG/ML VIAL SLOW IVP PRN (10:17)
[2023-11-04 11:03] LABS: #Basophils 0.1 thou/uL (0.0-0.2); #Eosinphils 0.4 thou/uL (0.0-0.7); #Monocytes 0.9 thou/uL (0.11-0.59); #Neutrophils 5.6 thou/uL (1.40-6.50); %Basophils 0.7 % (0.0-1.0); %Eosinophils 3.9 % (0.0-10.0); %Lymphocytes 33.2 % (21.0-51.0); %Monocytes 7.9 % (0.0-10.0); %Neutrophils 51.7 % (42.0-75.0); Hemoglobin 10.8 g/dL (14.0-18.0); Mean Corpuscular HGB CONC 31.8 g/dL (32.0-36.0); Mean Corpuscular Hemoglobin 25.8 pg (27.0-31.0); Mean Corpuscular Volume 81.1 fl (78.0-98.0); Mean Platelet Volume 8.5 fL (7.4-10.4); Platelet Count 546 10x3/uL (130-400); RBC Distribution Width 15.5 % (11.5-14.5); Red Blood Cell (RBC) Count 4.19 mill/uL (4.70-6.10); White Blood Cell (WBC) Count 10.9 10x3/uL (4.8-10.8)
[2023-11-04 11:27] LABS: Anion Gap 12 mmol/L (10-20); BUN (Urea Nitrogen) 23 mg/dL (8.4-25.7); Calc. Creatinine Clearance 106 mL/min (70-130); Calcium 8.6 mg/dL (7.8-10.44); Carbon Dioxide 27 mmol/L (22-29); Chloride 102 mmol/L (98-107); Estimated GFR 55; Glucose 97 mg/dL (70-105); Sodium 137 mmol/L (136-145)
[2023-11-04] MEDS: DAPTOmycin 800 MG in Sodium Chloride 0.9% 50 ML IVPB SCH (15:20)
[2023-11-04] MEDS: Atorvastatin Calcium 40 MG TAB PO SCH (20:59)
[2023-11-04] MEDS: diphenhydrAMINE 25 MG CAP PO SCH (20:59)
[2023-11-05 07:55] LABS: #Basophils 0.1 thou/uL (0.0-0.2); #Eosinphils 0.3 thou/uL (0.0-0.7); #Monocytes 0.8 thou/uL (0.11-0.59); #Neutrophils 4.9 thou/uL (1.40-6.50); %Basophils 0.7 % (0.0-1.0); %Eosinophils 3.1 % (0.0-10.0); %Lymphocytes 38.2 % (21.0-51.0); %Monocytes 7.9 % (0.0-10.0); Hematocrit 34.9 % (42.0-52.0); Hemoglobin 11.1 g/dL (14.0-18.0); Mean Corpuscular HGB CONC 31.8 g/dL (32.0-36.0); Mean Corpuscular Hemoglobin 25.8 pg (27.0-31.0); Mean Platelet Volume 8.3 fL (7.4-10.4); Platelet Count 543 10x3/uL (130-400); RBC Distribution Width 15.4 % (11.5-14.5); Red Blood Cell (RBC) Count 4.31 mill/uL (4.70-6.10); White Blood Cell (WBC) Count 10.1 10x3/uL (4.8-10.8)
[2023-11-05] MEDS: Amlodipine 10 MG TAB PO SCH (08:05)
[2023-11-05] MEDS: Losartan 25 MG TAB PO SCH (08:05)
[2023-11-05] MEDS: Loratadine 10 MG TAB PO SCH (08:05)
[2023-11-05] MEDS: DULoxetine 30 MG CAP PO SCH (08:05)
[2023-11-05] MEDS: Insulin Glargine 30 UNITS/0.3 ML VIAL SC SCH ×2 (08:05→21:00)
[2023-11-05] MEDS: Heparin 5,000 UNITS/ML VIAL SC SCH ×3 (08:05→20:59)
[2023-11-05] MEDS: Metoprolol Tartrate 50 MG TAB PO SCH ×2 (08:05→20:59)
[2023-11-05] MEDS: Hydrochlorothiazide 25 MG TAB PO SCH (08:05)
[2023-11-05] MEDS ORDERED: Lidocaine 1% PF 5 ML VIAL ONE (08:07)
[2023-11-05] MEDS ORDERED: Sodium Bicarbonate 2.5 MEQ/5 ML SDV ONE (08:07)
[2023-11-05 08:14] LABS: Anion Gap 12 mmol/L (10-20); BUN (Urea Nitrogen) 25 mg/dL (8.4-25.7); Calc. Creatinine Clearance 99 mL/min (70-130); Calcium 8.7 mg/dL (7.8-10.44); Carbon Dioxide 25 mmol/L (22-29); Chloride 104 mmol/L (98-107); Estimated GFR 50; Glucose 70 mg/dL (70-105); Potassium 4.4 mmol/L (3.5-5.1); Sodium 137 mmol/L (136-145)
[2023-11-05] MEDS: DAPTOmycin 800 MG in Sodium Chloride 0.9% 50 ML IVPB SCH (13:58)
[2023-11-05] MEDS: Atorvastatin Calcium 40 MG TAB PO SCH (20:59)
[2023-11-05] MEDS: diphenhydrAMINE 25 MG CAP PO SCH (20:59)
[2023-11-06 06:36] LABS: #Basophils 0.1 thou/uL (0.0-0.2); #Eosinphils 0.2 thou/uL (0.0-0.7); #Monocytes 0.8 thou/uL (0.11-0.59); #Neutrophils 5.5 thou/uL (1.40-6.50); %Basophils 0.8 % (0.0-1.0); %Monocytes 7.9 % (0.0-10.0); %Neutrophils 53.2 % (42.0-75.0); Hematocrit 32.3 % (42.0-52.0); Hemoglobin 10.3 g/dL (14.0-18.0); Mean Corpuscular HGB CONC 31.9 g/dL (32.0-36.0); Mean Corpuscular Hemoglobin 25.6 pg (27.0-31.0); Mean Corpuscular Volume 80.3 fl (78.0-98.0); Mean Platelet Volume 8.1 fL (7.4-10.4); Platelet Count 478 10x3/uL (130-400); RBC Distribution Width 15.3 % (11.5-14.5); Red Blood Cell (RBC) Count 4.02 mill/uL (4.70-6.10); White Blood Cell (WBC) Count 10.3 10x3/uL (4.8-10.8)
[2023-11-06 07:17] LABS: Anion Gap 13 mmol/L (10-20); BUN (Urea Nitrogen) 27 mg/dL (8.4-25.7); Calc. Creatinine Clearance 93 mL/min (70-130); Calcium 8.5 mg/dL (7.8-10.44); Carbon Dioxide 25 mmol/L (22-29); Chloride 101 mmol/L (98-107); Estimated GFR 47; Glucose 86 mg/dL (70-105); Potassium 4.4 mmol/L (3.5-5.1); Sodium 135 mmol/L (136-145)
[2023-11-06] MEDS: Loratadine 10 MG TAB PO SCH (08:02)
[2023-11-06] MEDS: Amlodipine 10 MG TAB PO SCH (08:02)
[2023-11-06] MEDS: DULoxetine 30 MG CAP PO SCH (08:02)
[2023-11-06] MEDS: Losartan 25 MG TAB PO SCH (08:02)
[2023-11-06] MEDS: Heparin 5,000 UNITS/ML VIAL SC SCH (08:03)
[2023-11-06] MEDS: Insulin Glargine 30 UNITS/0.3 ML VIAL SC SCH (08:03)
[2023-11-06] MEDS: Metoprolol Tartrate 50 MG TAB PO SCH (08:03)
[2023-11-06] MEDS: Hydrochlorothiazide 25 MG TAB PO SCH (08:03)
[2023-11-06 09:31] VITALS: BP 138/72; TEMP 98.5
[2023-11-06] MEDS: Morphine 4 MG/ML VIAL SLOW IVP PRN (09:44)
[2023-11-06] MEDS: DAPTOmycin 800 MG in Sodium Chloride 0.9% 50 ML IVPB SCH (13:28)
== END 2023-11-06 15:00 | disposition home or self-care (01) | DRG 854 ==
LOC: ERS 14:33 → T4-A 17:08
PROVIDERS: ADMIT Family Medicine; ATTEND Family Medicine
PROC: 3E03329 Introduction of Other Anti-infective into Peripheral Vein, Percutaneous Approach (ICD-10-PCS; 2023-10-27)
PROC: 0QBN0ZZ Excision of Right Metatarsal, Open Approach (ICD-10-PCS; principal; 2023-10-28)
PROC: 02HV33Z Insertion of Infusion Device into Superior Vena Cava, Percutaneous Approach (ICD-10-PCS; 2023-11-05)
DX: A41.9 Sepsis, unspecified organism (principal); E87.1 Hypo-osmolality and hyponatremia; N17.9 Acute kidney failure, unspecified; L03.115 Cellulitis of right lower limb; M86.8X7 Other osteomyelitis, ankle and foot; N18.32 Chronic kidney disease, stage 3b; E11.69 Type 2 diabetes mellitus with other specified complication; E11.22 Type 2 diabetes mellitus with diabetic chronic kidney disease; I12.9 Hypertensive chronic kidney disease with stage 1 through stage 4 chronic kidney disease, or unspecified chronic kidney disease; F32.9 Major depressive disorder, single episode, unspecified; Z79.4 Long term (current) use of insulin; Z79.899 Other long term (current) drug therapy; Z98.890 Other specified postprocedural states; E78.00 Pure hypercholesterolemia, unspecified; E11.621 Type 2 diabetes mellitus with foot ulcer; L97.519 Non-pressure chronic ulcer of other part of right foot with unspecified severity; Z79.01 Long term (current) use of anticoagulants; E78.5 Hyperlipidemia, unspecified; I89.1 Lymphangitis; I80.01 Phlebitis and thrombophlebitis of superficial vessels of right lower extremity; L27.0 Generalized skin eruption due to drugs and medicaments taken internally; L89.899 Pressure ulcer of other site, unspecified stage
CPT/HCPCS: 36415; 36416; 36569; 80048; 80053; 82550; 83605; 83930; 83935; 84300; 85025; 86140; 87040; 87070; 87077; 87149; 87186; 87205; 96365; 97139; C1751; J0692; J0696; J0878; J1644; J1815; J2001; J2270; J2272; J2405; J2704; J3010; J3370; J3370-JW; J3490; J7050; S0020

== ENCOUNTER 2023-12-16 14:34 | Emergency (ER) | payer OTHER ==
[2023-12-16 16:08] LABS: #Basophils 0.1 thou/uL (0.0-0.2); #Eosinphils 0.5 thou/uL (0.0-0.7); #Monocytes 0.7 thou/uL (0.11-0.59); #Neutrophils 4.9 thou/uL (1.40-6.50); %Basophils 0.7 % (0.0-1.0); %Eosinophils 5.6 % (0.0-10.0); %Lymphocytes 30.1 % (21.0-51.0); %Monocytes 7.5 % (0.0-10.0); Mean Corpuscular HGB CONC 32.4 g/dL (32.0-36.0); Mean Corpuscular Hemoglobin 26.5 pg (27.0-31.0); Mean Corpuscular Volume 81.9 fl (78.0-98.0); Mean Platelet Volume 8.8 fL (7.4-10.4); RBC Distribution Width 15.7 % (11.5-14.5); Red Blood Cell (RBC) Count 4.19 mill/uL (4.70-6.10); White Blood Cell (WBC) Count 8.7 10x3/uL (4.8-10.8)
[2023-12-16 16:23] LABS: Hematocrit 34.3 % (42.0-52.0); Hemoglobin 11.1 g/dL (14.0-18.0); Platelet Count 301 10x3/uL (130-400)
[2023-12-16 16:29] LABS: ALT (SGPT) 16 U/L (8-55); AST (SGOT) 17 U/L (5-34); Albumin 3.7 g/dL (3.5-5.0); Alkaline Phosphatase 118 U/L (40-110); Anion Gap 13 mmol/L (10-20); BUN (Urea Nitrogen) 30 mg/dL (8.4-25.7); Bilirubin, Total 0.8 mg/dL (0.2-1.2); Calc. Creatinine Clearance 0 mL/min (70-130); Calcium 9.1 mg/dL (7.8-10.44); Carbon Dioxide 22 mmol/L (22-29); Chloride 105 mmol/L (98-107); Estimated GFR 46; Globulin 3.7 g/dL (2.4-3.5); Glucose 115 mg/dL (70-105); Protein, Total 7.4 g/dL (6.0-8.3); Sodium 136 mmol/L (136-145)
== END 2023-12-16 17:11 | disposition home or self-care (01) ==
LOC: ERS 14:34
DX: I12.9 Hypertensive chronic kidney disease with stage 1 through stage 4 chronic kidney disease, or unspecified chronic kidney disease (principal); D63.1 Anemia in chronic kidney disease; N18.4 Chronic kidney disease, stage 4 (severe); E11.22 Type 2 diabetes mellitus with diabetic chronic kidney disease; E78.00 Pure hypercholesterolemia, unspecified; Z55.6 Problems related to health literacy; Z86.73 Personal history of transient ischemic attack (TIA), and cerebral infarction without residual deficits; Z79.84 Long term (current) use of oral hypoglycemic drugs; Z79.4 Long term (current) use of insulin; Z79.899 Other long term (current) drug therapy
CPT/HCPCS: 36415; 86850; 86900; 86901; 99284

== ENCOUNTER 2024-04-14 08:35 | Outpatient (CLI) | payer OTHER | END 2024-04-14 08:36 | disposition home or self-care (01) | LOC: ULT 08:35 | PROVIDERS: ATTEND Internal Medicine Nephrology | DX: N18.30 Chronic kidney disease, stage 3 unspecified (principal) | CPT/HCPCS: 76770 ==